=== PATIENT | female | born 1970 | race Caucasian/White ===

== ENCOUNTER → 2016-08-29 | Outpatient (CLI) | payer OTHER ==
[~2016-08-29] MED LIST: ACET1TAB84 PO; BIOT5000 PO; CALC500C70 PO; TAMO20TA9 PO; VITA400C15 PO
[2016-08-29 17:49] LABS: BASO % 0.6 %; BASO ABS # 0.03 K/uL (0-0.2); COMPLETE YES; EOS % 2.2 %; HEMATOCRIT 38.5 % (37-47); IG% 0.2 %; LYMPH % 36.9 %; MEAN CELL VOLUME 91.9 fL (80-100); MEAN CORPUSCULAR HEMOGLOBIN 29.8 pg (25-34); MEAN CORPUSCULAR HGB CONC 32.5 g/dl (32-36); MEAN PLATELET VOLUME 9.9 fL (7.4-10.4); NEUT % 55.1 %; PLATELET COUNT 280 K/uL (130-400); RED BLOOD COUNT 4.19 M/uL (4.2-5.4); WHITE BLOOD COUNT 5.42 K/uL (4.8-10.8)
[2016-08-29 17:55] LABS: ALT/SGPT 27 U/L (12-78); AST/SGOT 20 U/L (15-37); BLOOD UREA NITROGEN 22 mg/dl (7-18); BUN/CREATININE RATIO 23.5 (10-20); CARBON DIOXIDE 25 mmol/L (21-32); CHLORIDE 110 mmol/L (98-107); CREATININE 0.95 mg/dl (0.60-1.20); GLUCOSE 89 mg/dl (70-99); SODIUM 142 mmol/L (136-145)
[2016-08-29 17:57] LABS: ALB/GLOB RATIO 0.9 (0.9-2); ALKALINE PHOSPHATASE 55 U/L (45-117)
== END | disposition home or self-care (01) ==
LOC: C.LABPBG 13:01
PROVIDERS: ATTEND Nurse Practitioner Family
DX: C50.912 Malignant neoplasm of unspecified site of left female breast (principal)

== ENCOUNTER → 2016-09-18 | Outpatient (CLI) | payer OTHER | END | disposition home or self-care (01) | LOC: C.PAPS 15:15 | PROVIDERS: ATTEND Obstetrics & Gynecology | DX: Z12.4 Encounter for screening for malignant neoplasm of cervix (principal) ==

== ENCOUNTER → 2016-12-27 | Outpatient (CLI) | payer OTHER ==
[~2016-12-27] MED LIST changes: +TAMO20TA47 PO; -TAMO20TA9 PO
[2016-12-27 17:00] LABS: BASO % 0.5 %; BASO ABS # 0.03 K/uL (0-0.2); COMPLETE YES; EOS % 1.8 %; HEMATOCRIT 38.9 % (37-47); IG% 0.3 %; LYMPH % 39.1 %; LYMPH ABS # 2.42 K/uL (1.2-3.4); MEAN CELL VOLUME 91.5 fL (80-100); MEAN CORPUSCULAR HEMOGLOBIN 30.1 pg (25-34); MEAN CORPUSCULAR HGB CONC 32.9 g/dl (32-36); MEAN PLATELET VOLUME 9.8 fL (7.4-10.4); MONO % 6.9 %; NEUT % 51.4 %; PLATELET COUNT 263 K/uL (130-400); RED BLOOD COUNT 4.25 M/uL (4.2-5.4); WHITE BLOOD COUNT 6.19 K/uL (4.8-10.8)
[2016-12-27 17:22] LABS: ALT/SGPT 23 U/L (12-78); BLOOD UREA NITROGEN 17 mg/dl (7-18); BUN/CREATININE RATIO 17.5 (10-20); CALCIUM 9.3 mg/dl (8.5-10.1); CARBON DIOXIDE 29 mmol/L (21-32); CHLORIDE 107 mmol/L (98-107); CREATININE 0.99 mg/dl (0.60-1.20); GLUCOSE 91 mg/dl (70-99); POTASSIUM 4.9 mmol/L (3.5-5.1); SODIUM 140 mmol/L (136-145)
[2016-12-27 17:25] LABS: ALB/GLOB RATIO 0.9 (0.9-2); ALKALINE PHOSPHATASE 53 U/L (45-117); AST/SGOT 20 U/L (15-37)
== END | disposition home or self-care (01) ==
LOC: C.LABPBG 15:22
PROVIDERS: ATTEND Internal Medicine Hematology & Oncology
DX: C50.312 Malignant neoplasm of lower-inner quadrant of left female breast (principal)

== ENCOUNTER → 2017-04-25 | Outpatient (CLI) | payer OTHER ==
[~2017-04-25] MED LIST changes: +GADAVIST IV PRN; -TAMO20TA47 PO; +TAMO20TA9 PO
--- NOTE | 2017-04-26 14:36 | MAMMOGRAPHY REPORT ---
BREAST MRI OF BOTH BREASTS : 04/25/2017 CLINICAL HISTORY: History of left breast cancer status post lumpectomy. Also with history of 2 benig n right breast biopsies. COMPARISON: Comparison is made to exams dated: 09/11/2016 mammogram, 09/11/2016 ultrasound, 03/12/2016 mammogram, 02/29/2016 breast MRI, 09/15/2015 mammogram, and 09/06/2015 mammogram - [facility]. Technique: The patient was placed prone in a dedicated breast imaging coil. Precontrast axial T1-bhavin ghted, axial T2-weighted fat saturation, and axial T1-weighted fat saturation images were obtained. After the administration of 12.5 mL of Gadavist IV contrast, sequential T1-weighted fat saturation im ages were obtained. Subtraction images were obtained of the dynamic contrast enhanced sequences, and 3-D reformations were performed. The [employer] software was used for kinetic analysis. The technologis t reported that after the contrast injection was given, the patient complained of pain at her IV on h er hand. The technologist reported mild puffiness at the IV site but believed that most of the contr ast still entered her vein and therefore the post contrast sequences were obtained. Findings: No significant contrast is seen within either breast on the postcontrast sequences, as well as elsewh ere including the cardiac structures/great vessels. Given that the contrast bolus is suboptimal, the exam is nondiagnostic and malignancy cannot be excluded. The patient should return for repeat imagi ng. The precontrast images show susceptibility artifact within the left central/6:00 breast from prior emily mpectomy. 2 areas of clip artifact are also seen within the right breast from prior benign biopsies. There is no evidence of axillary adenopathy on the precontrast images. IMPRESSION: ACR BI-RADS CATEGORY 0: INCOMPLETE EVALUATION: NEED ADDITIONAL IMAGING EVALUATION Nondiagnostic exam as described above. The patient should return for repeat imaging at no additional charge. She will be called to schedule a follow-up appointment. Ursula Hoang M.D. /:04/25/2017 14:56:23 Stock Repairer: electronic data interchange specialist, [facility] letter sent: Addl Imaging 0 BI-RADS Code: ACR BI-RADS Category 0: Incomplete Evaluation: Need Additional Imaging Evaluation
== END | disposition home or self-care (01) ==
LOC: C.MRI 06:34
PROVIDERS: ATTEND Nurse Practitioner Family
DX: C50.312 Malignant neoplasm of lower-inner quadrant of left female breast (principal)

== ENCOUNTER → 2017-04-29 | Outpatient (CLI) | payer OTHER ==
--- NOTE | 2017-05-02 14:38 | MAMMOGRAPHY REPORT ---
BREAST MRI OF BOTH BREASTS : 04/29/2017 CLINICAL HISTORY: 47-year-old woman with a personal history of left breast cancer status post breast conservation treatment presents for additional surveillance. COMPARISON: Comparison is made to exams dated: 04/25/2017 breast MRI, 09/11/2016 ultrasound, 03/12/2016 mammogram, 09/15/2015 ultrasound biopsy, 09/06/2015 ultrasound, and 09/06/2015 mammogram - [facility]. TECHNIQUE: Using a 1.5 Yoli magnet and dedicated breast coil, multisequence axial images were obtain ed through the breasts. After uneventful IV administration of XXXX mL of Gadavist, dynamic multiphas e contrast-enhanced axial images, and sagittal postcontrast were obtained. Temporal subtraction axia l images and 3-D MIP images are provided. Everything was then reviewed on a 3-D workstation, [employer] FINDINGS: Right breast: There is mild to moderate background parenchymal enhancement. No new suspicious enhanc ing mass, non-mass enhancement, architectural distortion or suspicious kinetics are seen in the right breast. No focal skin thickening or nipple retraction. No suspicious right axillary lymphadenopath y. Left breast: There is mild to moderate background parenchymal enhancement. There is expected archite ctural distortion and susceptibility artifact from surgical clips in the 6:00 middle to posterior lef t breast, at the site of prior lumpectomy. There are scattered enhancing foci in the left breast wit hout evidence of a suspicious enhancing mass, suspicious non-mass enhancement or unexpected manager architecture ural distortion. No suspicious left axillary lymphadenopathy. There is trace dependent fluid in the visualized right lung. IMPRESSION: ACR BI-RADS CATEGORY 2: BENIGN 1. Expected post treatment changes in the left breast, without MRI evidence of malignancy in the harry asts. No suspicious axillary lymphadenopathy. 2. Continuation of annual screening mammography and MRI is recommended. The patient will receive written notification of the results. Hillary Rodriguez M.D. ay/:05/01/2017 16:21:21 Pin Drafter Operator: booking officer, [facility] letter sent: Normal 1/2 BI-RADS Code: ACR BI-RADS Category 2: Benign
== END | disposition home or self-care (01) ==
LOC: C.MRI 15:28
PROVIDERS: ATTEND Nurse Practitioner Family
DX: C50.312 Malignant neoplasm of lower-inner quadrant of left female breast (principal)

== ENCOUNTER → 2017-04-30 | Outpatient (CLI) | payer OTHER ==
[~2017-04-30] MED LIST changes: -GADAVIST IV PRN
[2017-04-30 12:42] LABS: BASO ABS # 0.04 K/uL (0-0.2); EOS % 3.1 %; EOS ABS # 0.13 K/uL (0-0.5); HEMATOCRIT 42.4 % (37-47); HEMOGLOBIN 14.5 g/dL (12.0-16.0); IG# 0.01 K/uL (0.00-0.02); LYMPH % 38.3 %; LYMPH ABS # 1.58 K/uL (1.2-3.4); MEAN CELL VOLUME 89.1 fL (80-100); MEAN CORPUSCULAR HEMOGLOBIN 30.5 pg (25-34); MEAN CORPUSCULAR HGB CONC 34.2 g/dl (32-36); MEAN PLATELET VOLUME 10.5 fL (7.4-10.4); MONO % 6.1 %; MONO ABS # 0.25 K/uL (0.11-0.59); NEUT % 51.3 %; NEUT ABS # 2.12 K/uL (1.4-6.5); PLATELET COUNT 254 K/uL (130-400); RED CELL DISTRIBUTION WIDTH CV 12.8 % (11.5-14.5); RED CELL DISTRIBUTION WIDTH SD 41.7 fL (36.4-46.3); WHITE BLOOD COUNT 4.13 K/uL (4.8-10.8)
[2017-04-30 14:22] LABS: ALBUMIN 3.9 gm/dl (3.4-5.0); ALT/SGPT 44 U/L (12-78); AST/SGOT 31 U/L (15-37); BLOOD UREA NITROGEN 14 mg/dl (7-18); CALCIUM 9.4 mg/dl (8.5-10.1); CARBON DIOXIDE 25 mmol/L (21-32); CHOLESTEROL 176 mg/dl (0-200); CREATININE 0.82 mg/dl (0.60-1.20); GLUCOSE 103 mg/dl (70-99); POTASSIUM 3.7 mmol/L (3.5-5.1); SODIUM 137 mmol/L (136-145); TOTAL PROTEIN 7.8 gm/dl (6.4-8.2)
[2017-04-30 14:23] LABS: ALKALINE PHOSPHATASE 67 U/L (45-117); LDL CHOLESTEROL CALCULATED 102 mg/dl
== END | disposition home or self-care (01) ==
LOC: C.LABPBG 08:24
PROVIDERS: ATTEND Plastic Surgery
DX: C50.312 Malignant neoplasm of lower-inner quadrant of left female breast (principal); F41.9 Anxiety disorder, unspecified; I10 Essential (primary) hypertension; Z13.220 Encounter for screening for lipoid disorders

== ENCOUNTER 2020-01-29 11:51 | Inpatient (IN) ==
--- NOTE | 2020-01-29 12:49 | XRay Report ---
XR chest 1V portable CLINICAL HISTORY: Chest pain. COMPARISON STUDY: Chest radiograph December 02, 2014. FINDINGS: Lung volumes are at the lower limits of normal. There is no pneumothorax or pleural effusio n. There is no evidence for pulmonary edema. There is mild left lower lung opacity. Mild enlargement of the cardiac silhouette is noted. IMPRESSION: Left basilar opacity. Atelectasis is favored although an infectious process could appear similar. Radiographic follow-up is recommended. ACT 112: Negative or not required by law. Electronically signed by: Deangelo Mcgowan M.D. 01/29/2020 12:48 PM
--- NOTE | 2020-01-29 13:06 | Emergency Department Note ---
History of Present Illness General Chief Complaint: Chest Pain Time Seen by Provider: 01/29/20 12:22 History of Present Illness Provider Complaint: chest pain Onset (ago): day(s) 3 Duration: intermittent Onset: during exertion Pain Location: substernal Pain Radiation: neck Severity: mild Maximum Pain Intensity: 3 Current Pain Intensity: 2 Quality: + sharp Relieved By: + nothing Exacerbated By: + inspiration Context: + other (History of breast cancer) Associated symptoms: + dyspnea; no nausea, no vomiting, no diaphoresis, no sense of impending doom, no syncope and no palpitations Home Medications Home Medications Medication Instructions Recorded Confirmed Type exemestane 25 mg tablet 25 mg PO DAILY #30 tab 03/26/19 01/29/20 Rx hydrochlorothiazide 12.5 mg tablet 25 mg PO DAILY #180 tab 11/26/19 01/29/20 Rx escitalopram oxalate 10 mg tablet 20 mg PO DAILY #90 tab 12/24/19 01/29/20 Rx pantoprazole 40 mg tablet,delayed 40 mg PO DAILY 12/24/19 01/29/20 History release lisinopril 30 mg tablet 30 mg PO DAILY #90 tab 01/08/20 01/29/20 Rx atenolol 50 mg tablet 50 mg PO DAILY #90 tab 01/15/20 01/29/20 Rx Allergies Allergy/AdvReac Type Severity Reaction Status Date / Time adhesive AdvReac Mild Itchy rash Verified 01/29/20 12:57 to Tape/Steri Strips/Band Aids Past Med/Surg History Medical History Anxiety BRCA negative Breast cancer (11/03/14) "Left breast, invasive ductal carcinoma, grade 2, ER/NJ positive, Her2 negative, [id number], stage IA TREATMENT: lumpectomy and SLN. 11/19/14 Oncotype DX score 20 Status post post completion of systemic chemotherapy Started with Taxotere and Cytoxan, allergic reaction to Taxotere Completed chemotherapy with Adriamycin and Cytoxan BRCA1 and BRCA2 negative Status post completion of radiation therapy 06/13/2014 received 6640 cGy" On 07/12/15 15:58 Latoya Pathak wrote "Left breast, invasive ductal carcinoma, grade 2, ER/NJ positive, Her2 negative, [id number], stage IA TREATMENT: lumpectomy and SLN. 11/19/14 Oncotype DX score 20 Status post post completion of systemic chemotherapy Started with Taxotere and Cytoxan, allergic reaction to Taxotere Completed chemotherapy with Adriamycin and Cytoxan BRCA1 and BRCA2 negative Status post completion of radiation therapy 06/13/2014 received 6640 cGy" On 06/20/15 11:10 Latoya Pathak wrote "Left breast, invasive ductal carcinoma, grade 2, ER/NJ positive, Her2 negative, [id number], stage IA TREATMENT: lumpectomy and SLN. 11/19/14 Oncotype DX score 20 Status post post completion of systemic chemotherapy BRCA1 and BRCA2 negative Status post completion of radiation therapy 06/13/2014 received 6640 cGy" On 12/08/14 13:15 Mikayla Correa wrote "Left breast, invasive ductal carcinoma, grade 2, ER/NJ positive, Her2 negative, [id number], stage IA TREATMENT: lumpectomy and SLN. 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) Status post partial mastectomy of left breast (11/19/14) Family History Son Autism Sister Diabetes Gallbladder disease Grandmother (Maternal) Diabetes Father Urinary bladder cancer Mother Hypertension Stroke Denies family history of Ovarian cancer Prostate cancer Myocardial infarction Breast cancer Lung cancer Colorectal cancer Social History Smoking Status: Never smoker packs per day: 2; Second Hand Exposure: No; Hx Alcohol Use: Yes Hx Substance Use: No Preferred Language: Argentine Communication Ability: Effective Visual Impairment: No Limitations Hearing Ability: Normal Beliefs That Will Affect Care: None marital status: Current Living Situation: Spouse Current Living Situation Comment: with spouse and 2 children current occupational status: unemployed current occupation: house- Feels Safe at Home: Yes Childhood Exposure to Second-Hand Smoke: No Diet Comment: regular caffeine: Yes during the past year weight has: increased > 10 lbs Dental Care, Regularly: Yes Physical Activity Frequency: Does not Exercise Seatbelt Use: always Sunscreen Use: No Review of Systems A total of 10 systems reviewed and were otherwise negative Physical Exam Vital Signs Vital Signs - 24 hr 01/29/20 12:03 01/29/20 12:06 01/29/20 12:10 Temperature 37.1 C Temperature Source Oral Pulse Rate 76 76 78 Pulse Rate from SpO2 Sensor 78 75 77 Respiratory Rate 21 18 13 Respiratory Depth Normal Blood Pressure 153/81 H Blood Pressure Mean 88 Pulse Oximetry 98 98 97 Oxygen Delivery Method Room Air Sepsis Recent Fever Within 48 Hours No Sepsis New/Unexplained Change in Mental Status No Sepsis Action Taken by Nursing No Action Required 01/29/20 12:12 01/29/20 12:20 01/29/20 12:30 Temperature Temperature Source Pulse Rate 80 80 77 Pulse Rate from SpO2 Sensor 79 80 76 Respiratory Rate 24 24 19 Respiratory Depth Blood Pressure 142/77 H Blood Pressure Mean 89 Pulse Oximetry 97 97 97 Oxygen Delivery Method Sepsis Recent Fever Within 48 Hours Sepsis New/Unexplained Change in Mental Status Sepsis Action Taken by Nursing 01/29/20 12:31 01/29/20 12:34 01/29/20 12:40 Temperature Temperature Source Pulse Rate 75 72 Pulse Rate from SpO2 Sensor 75 72 Respiratory Rate 21 22 Respiratory Depth Blood Pressure 145/82 H Blood Pressure Mean 108 Pulse Oximetry 97 98 98 Oxygen Delivery Method Room Air Sepsis Recent Fever Within 48 Hours Sepsis New/Unexplained Change in Mental Status Sepsis Action Taken by Nursing 01/29/20 12:50 01/29/20 13:00 01/29/20 13:01 Temperature Temperature Source Pulse Rate 78 76 82 Pulse Rate from SpO2 Sensor 79 76 81 Respiratory Rate 21 24 21 Respiratory Depth Blood Pressure 147/108 H Blood Pressure Mean 124 Pulse Oximetry 97 98 98 Oxygen Delivery Method Sepsis Recent Fever Within 48 Hours Sepsis New/Unexplained Change in Mental Status Sepsis Action Taken by Nursing 01/29/20 13:10 01/29/20 13:20 01/29/20 13:30 Temperature Temperature Source Pulse Rate 72 73 71 Pulse Rate from SpO2 Sensor 72 74 71 Respiratory Rate 20 19 19 Respiratory Depth Blood Pressure 149/102 H Blood Pressure Mean 112 Pulse Oximetry 97 96 97 Oxygen Delivery Method Sepsis Recent Fever Within 48 Hours Sepsis New/Unexplained Change in Mental Status Sepsis Action Taken by Nursing 01/29/20 13:40 01/29/20 13:50 01/29/20 14:00 Temperature Temperature Source Pulse Rate 75 91 H 77 Pulse Rate from SpO2 Sensor 75 93 H 77 Respiratory Rate 24 23 Respiratory Depth Blood Pressure Blood Pressure Mean Pulse Oximetry 98 91 97 Oxygen Delivery Method Sepsis Recent Fever Within 48 Hours Sepsis New/Unexplained Change in Mental Status Sepsis Action Taken by Nursing 01/29/20 14:10 01/29/20 14:20 01/29/20 14:30 Temperature Temperature Source Pulse Rate 76 77 77 Pulse Rate from SpO2 Sensor 76 75 77 Respiratory Rate 22 22 21 Respiratory Depth Blood Pressure Blood Pressure Mean Pulse Oximetry 97 96 97 Oxygen Delivery Method Sepsis Recent Fever Within 48 Hours Sepsis New/Unexplained Change in Mental Status Sepsis Action Taken by Nursing Physical Exam GENERAL: She is oriented to person, place, and time. She appears well-developed and well-nourished. She does not appear distressed. HENT: Exam performed. -Head: Normocephalic and atraumatic. -Right Ear: External ear normal. No mastoid tenderness. -Left Ear: External ear normal. No mastoid tenderness. -Mouth/Throat: The oropharynx is clear and moist. No trismus in the jaw. No dental abscesses or uvula swelling. No oropharyngeal exudate or tonsillar abscesses. EYES: Conjunctivae and EOM are normal. Pupils are equal, round, and reactive to light. Right eye exhibits no discharge. Left eye exhibits no discharge. No scleral icterus. NECK: Normal range of motion. Neck supple. No JVD present. No spinous process tenderness present. No carotid bruit present. No rigidity. No tracheal deviation and normal range of motion present. No Brudzinski's sign and no Kernig's sign noted. CV: Normal rate, regular rhythm, normal heart sounds and intact distal pulses. There is no peripheral edema. Palpable radial pulses bue. PULM/CHEST: Effort normal and breath sounds normal. No respiratory distress. No stridor. She has no wheezes. She has no rales. -Chest Wall: She exhibits no tenderness. ABD: The abdomen is soft and obese. Bowel sounds are normal. She has no distension. No mass is present. There is no tenderness. There is no rebound, no guarding, no Hairston's sign and no tenderness at McBurney's point. Rovsig negative MUSC/SKEL: Normal range of motion. There is no peripheral edema, tenderness or deformity. LYMPH: No cervical adenopathy. NEURO: She is alert and oriented to person, place, and time. She has normal strength. No cranial nerve deficit or sensory deficit. Coordination and gait normal. GCS eye subscore is 4. GCS verbal subscore is 5. GCS motor subscore is 6. Cerebellar tests wnl. SKIN: Skin is warm and dry. She is not diaphoretic. PSYCH: She has a normal mood and affect. Behavior is normal. Judgment and thought content normal. Course Course 1222: The patient was evaluated in room B5. A complete history and physical exam was performed. Cardiac monitoring: An order was placed for continuous cardiac monitoring. The monitor shows a rate of 70 with sinus rhythm 1528: Vital signs stable. Labs within normal limits. Imaging shows no PE but does show a small to moderate pericardial effusion. Patient is still reporting chest pain intermittently. Given the patient's morbid obesity, history of hypertension, and family history of stroke the patient was offered inpatient observation for chest pain rule out ACS versus outpatient follow-up with cardiology. Patient stated she did not feel comfortable being discharged home will like to be brought into the hospital. Dr. Ireland [facility] hospitalist was notified of the patient agrees to evaluate the patient. Administered Medications Discontinued Medications Ioversol (Optiray 320 125ml) 118 ml IV ONCE ONE Stop: 01/29/20 14:45 Last Admin: 01/29/20 14:44 Dose: 118 ml Documented by: [id number] Medical Decision Making Laboratory Data Result diagrams: 01/29/20 13:47 01/29/20 13:47 Labs: Lab Results 01/29/20 01/29/20 01/29/20 Range/Units 13:47 13:47 13:47 WBC 8.91 (4.8-10.8) K/uL RBC 3.99 L (4.2-5.4) M/uL Hgb 11.8 L (12.0-16.0) g/dL Hct 36.1 L (37-47) % MCV 90.5 (80-100) fL MCH 29.6 (25-34) pg MCHC 32.7 (32-36) g/dL RDW Std Deviation 45.7 (36.4-46.3) fL RDW Coeff of Krystal 13.7 (11.5-14.5) % Plt Count 242 (130-400) K/uL MPV 10.2 (7.4-10.4) fL Immature Gran % (Auto) 0.2 % Neut % (Auto) 80.0 % Lymph % (Auto) 13.4 % Hart % (Auto) 6.2 % Eos % (Auto) 0.1 % Baso % (Auto) 0.1 % Neut # (Auto) 7.13 H (1.4-6.5) K/uL Lymph # (Auto) 1.19 L (1.2-3.4) K/uL Hart # (Auto) 0.55 (0.11-0.59) K/uL Eos # (Auto) 0.01 (0-0.5) K/uL Baso # (Auto) 0.01 (0-0.2) K/uL Immature Gran # (Auto) 0.02 (0.00-0.02) K/uL PT 11.1 (9.0-12.0) Seconds INR 1.1 (0.9-1.1) APTT 23.1 (21.0-31.0) Seconds PTT Ratio 0.8 Sodium 137 (136-145) mmol/L Potassium 3.9 (3.5-5.1) mmol/L Chloride 106 (98-107) mmol/L Carbon Dioxide 26 (21-32) mmol/L Anion Gap 5.0 (3-11) BUN 18 (7-18) mg/dl Creatinine 0.78 (0.6-1.2) mg/dl Est Cr Clr Drug Dosing 116.0 ml/min Est GFR ( Amer) 104.2 Est GFR (Non-Af Amer) 89.9 BUN/Creatinine Ratio 22.6 H (10-20) Glucose 116 H (70-99) mg/dl Calcium 9.4 (8.5-10.1) mg/dl Troponin I 0.039 (0-0.045) ng/ml Lipase 131 (73-393) U/L Imaging Data Chest x-ray: Radiologist's impression: XR chest 1V portable CLINICAL HISTORY: Chest pain. COMPARISON STUDY: Chest radiograph December 02, 2014. FINDINGS: Lung volumes are at the lower limits of normal. There is no pneumothorax or pleural effusion. There is no evidence for pulmonary edema. There is mild left lower lung opacity. Mild enlargement of the cardiac silhouette is noted. IMPRESSION: Left basilar opacity. Atelectasis is favored although an infectious process could appear similar. Radiographic follow-up is recommended. ACT 112: Negative or not required by law. Electronically signed by: Deangelo Mcgowan M.D. 01/29/2020 12:48 PM Dictated: 01/29/20 1246 Transcribed: 01/29/[address] angio chest PE protocol CT DOSE: 671.33 mGy.cm HISTORY: 49 years-old Female with ro PE. Acute shortness of breath with chest pain TECHNIQUE: Multiple CTA images of the chest were obtained after the intravenous administration of 118 ml Optiray 320. Coronal and sagittal MIPS were obtained from the axial data set and were submitted for review. All measurements were obtained according to NASCET criteria. A dose lowering technique was utilized adhering to the principles of ALARA. COMPARISON: Chest radiograph 01/29/2020 FINDINGS: CTA: Heart is upper limits of normal in size. Small to moderate pericardial effusion measures up to 1.2 cm posteriorly. No thoracic aortic aneurysm or dissection. The pulmonary arterial tree is opacified to level of the proximal subsegmental branches and demonstrates no filling defects to suggest thromboembolic disease. CT CHEST: No large thyroid nodule. No adenopathy. Small pleural effusions. Dependent and bibasilar predominant left greater than right groundglass and linear consolidative opacities. Mild associated bronchial wall thickening. Prior gastric bypass. Probable hepatic steatosis. Biopsy clips of the left breast. Bones of the chest appear intact. There is no acute fracture. Mild multilevel disc space narrowing with spondylitic spurring and facet arthrosis. IMPRESSION: 1. No evidence of pulmonary thromboembolic disease. 2. Small pleural effusions with [id number] pericardial effusion. 3. Bibasilar and dependent predominant, left greater than right groundglass and linear consolidative opacities favor atelectasis however a nonspecific infectious or inflammatory pneumonitis would be difficult to exclude. 4. No adenopathy. 5. Prior gastric bypass. ACT 112: Negative or not required by law. The above report was generated using voice recognition software. It may contain grammatical, syntax or spelling errors. Electronically signed by: Balwinder Hoang M.D. 01/29/2020 3:01 PM Dictated: 01/29/20 1451 Transcribed: 01/29/20 145 ECG Data Indication: chest pain Rate (beats per minute): 74 Rhythm: normal sinus Findings: no ST depression and no ST elevation Additional Comments: [place] QRS and QTc intervals within normal limits [facility] Narrative 1222: The patient was evaluated in room B5. A complete history and physical exam was performed. Cardiac monitoring: An order was placed for continuous cardiac monitoring. The monitor shows a rate of 70 with sinus rhythm 1528: Vital signs stable. Labs within normal limits. Imaging shows no PE but does show a small to moderate pericardial effusion. Patient is still reporting chest pain intermittently. Given the patient's morbid obesity, history of hypertension, and family history of stroke the patient was offered inpatient observation for chest pain rule out ACS versus outpatient follow-up with cardiology. Patient stated she did not feel comfortable being discharged home will like to be brought into the hospital. Dr. Ireland [facility] hospitalist was notified of the patient agrees to evaluate the patient. Impression & Plan Chest pain Discharge Plan Visit Data Chief Complaint: Chest Pain ED Provider: Isidro Marion Discharge Problem: Chest pain Patient Disposition: Being Evaluated by Hospitalist Forms Stand Alone Forms: My [facility] Prescriptions Prescriptions: No Action hydrochlorothiazide 12.5 mg tablet 25 mg PO DAILY Qty: 180 RF: 1 Hold Instructions: low BP escitalopram oxalate 10 mg tablet 20 mg PO DAILY Qty: 90 RF: 1 lisinopril 30 mg tablet 30 mg PO DAILY Qty: 90 RF: 1 atenolol 50 mg tablet 50 mg PO DAILY Qty: 90 RF: 1 exemestane 25 mg tablet 25 mg PO DAILY Qty: 30 RF: 2 pantoprazole 40 mg tablet,delayed release (DR/EC) 40 mg PO DAILY RF: 0 Referrals Referrals: Dari Bowman DO [Primary Care Provider] - Discharge Problem: Chest pain Qualifiers: Chest pain type: unspecified Qualified Code(s): R07.9 - Chest pain, unspecified
[2020-01-29 14:03] LABS: Basophils # (auto) 0.01 K/uL (0-0.2); Basophils % (auto) 0.1 %; Eosinophils # (auto) 0.01 K/uL (0-0.5); Eosinophils % (auto) 0.1 %; Hematocrit (blood only) 36.1 % (37-47); Hemoglobin 11.8 g/dL (12.0-16.0); Immature Granulocytes # (auto) 0.02 K/uL (0.00-0.02); Immature Granulocytes % (auto) 0.2 %; Lymphocytes # (auto) 1.19 K/uL (1.2-3.4); Lymphocytes % (auto) 13.4 %; Mean Corpuscular Hemoglobin 29.6 pg (25-34); Mean Corpuscular Hgb Conc 32.7 g/dL (32-36); Mean Corpuscular Volume 90.5 fL (80-100); Mean Platelet Volume 10.2 fL (7.4-10.4); Monocytes # (auto) 0.55 K/uL (0.11-0.59); Monocytes % (auto) 6.2 %; Neutrophils # (auto) 7.13 K/uL (1.4-6.5); Platelet Count 242 K/uL (130-400); RDW Coefficient of Variation 13.7 % (11.5-14.5); RDW Standard Deviation 45.7 fL (36.4-46.3); Red Blood Count 3.99 M/uL (4.2-5.4); White Blood Count 8.91 K/uL (4.8-10.8)
[2020-01-29 14:19] LABS: BUN Creatinine Ratio 22.6 (10-20); Calcium 9.4 mg/dl (8.5-10.1); Est GFR (African American) 104.2; Est GFR (Non-African American) 89.9; INR 1.1 (0.9-1.1); Partial Thromboplastin Ratio 0.8; Partial Thromboplastin Time 23.1 Seconds (21.0-31.0); Potassium 3.9 mmol/L (3.5-5.1); Prothrombin Time 11.1 Seconds (9.0-12.0)
[2020-01-29 14:23] LABS: Troponin I 0.039 ng/ml (0-0.045)
[2020-01-29] MEDS ORDERED: OPTIRAY 320 125ml IV ONE (14:44)
--- NOTE | 2020-01-29 15:03 | CT Scan Report ---
CT angio chest PE protocol CT DOSE: 671.33 mGy.cm HISTORY: 49 years-old Female with ro PE. Acute shortness of breath with chest pain TECHNIQUE: Multiple CTA images of the chest were obtained after the intravenous administration of 118 ml Optiray 320. Coronal and sagittal MIPS were obtained from the axial data set and were submitted for review. All measurements were obtained according to NASCET criteria. A dose lowering technique w as utilized adhering to the principles of ALARA. COMPARISON: Chest radiograph 01/29/2020 FINDINGS: CTA: Heart is upper limits of normal in size. Small to moderate pericardial effusion measures up to 1.2 cm posteriorly. No thoracic aortic aneurysm or dissection. The pulmonary arterial tree is opacified to level of the proximal subsegmental branches and demonstrates no filling defects to suggest thromboemb olic disease. CT CHEST: No large thyroid nodule. No adenopathy. Small pleural effusions. Dependent and bibasilar predominant left greater than right groundglass and linear consolidative opacities. Mild associated bronchial wal l thickening. Prior gastric bypass. Probable hepatic steatosis. Biopsy clips of the left breast. Bones of the chest appear intact. There is no acute fracture. Mild multilevel disc space narrowing with spondylitic spu rring and facet arthrosis. IMPRESSION: 1. No evidence of pulmonary thromboembolic disease. 2. Small pleural effusions with [id number] pericardial effusion. 3. Bibasilar and dependent predominant, left greater than right groundglass and linear consolidative opacities favor atelectasis however a nonspecific infectious or inflammatory pneumonitis would be dif ficult to exclude. 4. No adenopathy. 5. Prior gastric bypass. ACT 112: Negative or not required by law. The above report was generated using voice recognition software. It may contain grammatical, syntax o r spelling errors. Electronically signed by: Balwinder Hoang M.D. 01/29/2020 3:01 PM
--- NOTE | 2020-01-29 15:49 | History & Physical Report ---
Date of Service January 29, 2020 Assessment & Plan (1) Pericarditis: -Admit to PCU -CT imaging reviewed, appears to have small to moderate sized pericardial effusion, likely pericarditis with symptom presentation. -Check 2D echo -Cardiology consulted, discussed with Dr. Pope over the phone, agrees with current plan of care -Noted troponin of 0.39, trend x 2 more sets -ESR elevated at 50, checking CK -EKG reviewed with nonspecific changes -start on IV Toradol 15 mg q6h prn, colchicine 0.6 mg BID -Bio fire positive for rhino/enterovirus which is likely cause given the preceding viral illness, COVID negative (2) Chest pain: Secondary to pericarditis as above, no PE or pneumonia but has gotten especially significant illness Treatment as above (3) Pleural effusion: Small bilateral pleural effusions, likely secondary to recent post viral inflammatory condition (4) Viral illness: -Check COVID-19, biofire with recent viral illness-likely can cause viral pericarditis as described above -Contact precautions for now -O2 sat stable at 99% on RA -Supportive care -Hemodynamically stable (5) Essential hypertension: -Continue atenolol 50 mg, lisinopril 30 mg tonight, patient routinely takes medications in evening. She stopped her HCTZ several weeks ago due to low blood pressure after losing 40 pounds from gastric sleeve (6) Breast cancer: -ER [place] positive, HER-2/bethany negative, stage I, originally diagnosed 2014, left breast. -Status post chemo and XRT, currently on exemestane -Follows with Neisha Colmenares at the [facility] (7) Morbid obesity: -BMI 47.8, s/p gastric sleeve 12/16/2019 and has already lost 40 pounds in 6 weeks, diet and exercise to be encouraged (8) Anxiety: -History of such, continue Lexapro 20 mg daily (9) DVT prophylaxis: - teds, scds, encourage ambulation CODE: Full Dispo: From home, likely to remain in the hospital x 1-2 days History of Present Illness Chief Complaint: Chest pain Primary Care Provider: Dari Bowman, DO This is a 49 yo F with PMHx of Breast cancer currently on exemestane, s/p sleeve gastrectomy on 12/16/[address] Tyshawn Natarajan at [facility] [place], HTN, morbid obesity with BMI of 47.8, who presents with acute onset of chest pain which started yesterday. She report having had a cold within the past week, symptoms include runny nose, headache, sore throat, postnasal drip, nausea reports her children and her now have it. She reports feeling like her cold was improving, however yesterday noticed significant sharp pain radiating to the back when she would take deep breaths. She went to an urgent care center this morning. While she was sitting in the waiting room felt acute lightheadedness, flushed and became nauseous. She was able to tell the lip and gate builder "something is not right" and was taken back into an evaluation room. There she was noted to be hypotensive with SBP =80. EMS was called, and was given IV fluids in route to the hospital. Currently she has mild chest pain at rest, worse with deep breaths, worse with leaning backwards/laying flat and improves with leaning forward. She denies any recent sick contacts other than her immediate family, denies any known COVID-19 positive contacts. In regards to her gastric sleeve surgery she had follow-up at 2 weeks and is scheduled to go back again next week for further follow-up. Everything had been going well and has not had any significant bouts of vomiting, diarrhea, abdominal pain, fever, chills or sweats. Her blood pressure has improved to being 180s/105, she is due to take her routine medications this evening which include atenolol, lisinopril. Allergies Allergy/AdvReac Type Severity Reaction Status Date / Time adhesive AdvReac Mild Itchy rash Verified 01/29/20 12:57 to Tape/Steri Strips/Band Aids Home Medications Home Medications Medication Instructions Recorded Confirmed Type exemestane 25 mg tablet 25 mg PO DAILY #30 tab 03/26/19 01/29/20 Rx escitalopram oxalate 10 mg tablet 20 mg PO DAILY #90 tab 12/24/19 01/29/20 Rx pantoprazole 40 mg tablet,delayed 40 mg PO DAILY 12/24/19 01/29/20 History release lisinopril 30 mg tablet 30 mg PO DAILY #90 tab 01/08/20 01/29/20 Rx atenolol 50 mg tablet 50 mg PO DAILY #90 tab 01/15/20 01/29/20 Rx Past Med/Surg History Medical History Anxiety BRCA negative Breast cancer (11/03/14) "Left breast, invasive ductal carcinoma, grade 2, ER/WA positive, Her2 negative, [id number], stage IA TREATMENT: lumpectomy and SLN. 11/19/14 Oncotype DX score 20 Status post post completion of systemic chemotherapy Started with Taxotere and Cytoxan, allergic reaction to Taxotere Completed chemotherapy with Adriamycin and Cytoxan BRCA1 and BRCA2 negative Status post completion of radiation therapy 06/13/2014 received 6640 cGy" On 07/12/15 15:58 Latoya Pathak wrote "Left breast, invasive ductal carcinoma, grade 2, ER/WA positive, Her2 negative, [id number], stage IA TREATMENT: lumpectomy and SLN. 11/19/14 Oncotype DX score 20 Status post post completion of systemic chemotherapy Started with Taxotere and Cytoxan, allergic reaction to Taxotere Completed chemotherapy with Adriamycin and Cytoxan BRCA1 and BRCA2 negative Status post completion of radiation therapy 06/13/2014 received 6640 cGy" On 06/20/15 11:10 Latoya Pathak wrote "Left breast, invasive ductal carcinoma, grade 2, ER/WA positive, Her2 negative, [id number], stage IA TREATMENT: lumpectomy and SLN. 11/19/14 Oncotype DX score 20 Status post post completion of systemic chemotherapy BRCA1 and BRCA2 negative Status post completion of radiation therapy 06/13/2014 received 6640 cGy" On 12/08/14 13:15 Mikayla Correa wrote "Left breast, invasive ductal carcinoma, grade 2, ER/WA positive, Her2 negative, [id number], stage IA TREATMENT: lumpectomy and SLN. 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) Status post partial mastectomy of left breast (11/19/14) Family History Son Autism Sister Diabetes Gallbladder disease Grandmother (Maternal) Diabetes Father Urinary bladder cancer Mother Hypertension Stroke Denies family history of Ovarian cancer Prostate cancer Myocardial infarction Breast cancer Lung cancer Colorectal cancer Social History Smoking Status: Never smoker packs per day: 2; Second Hand Exposure: No; Hx Alcohol Use: Yes Hx Substance Use: No Preferred Language: Sudanese Communication Ability: Effective Visual Impairment: No Limitations Hearing Ability: Normal Beliefs That Will Affect Care: None marital status: Current Living Situation: Spouse Current Living Situation Comment: with spouse and 2 children current occupational status: unemployed current occupation: house- Feels Safe at Home: Yes Childhood Exposure to Second-Hand Smoke: No Diet Comment: regular caffeine: Yes during the past year weight has: increased > 10 lbs Dental Care, Regularly: Yes Physical Activity Frequency: Does not Exercise Seatbelt Use: always Sunscreen Use: No Review of Systems Review of Systems: Constitutional: As per HPI, currently no fever, sweats or chills Eyes: No diplopia, no worsening or blurred vision ENT: normal hearing, no trouble swallowing Respiratory: As per HPI, +cough, + clear sputum, no dyspnea at rest or on exertion Cardiovascular: As per HPI, no palpitations Abdomen: As per HPI, no pain, nausea, vomiting, diarrhea or constipation Musculoskeletal: No joint pain, calf pain, swelling Neurologic: No weakness, numbness/tingling, or balance problems Psychiatric: No anxiety or depression Skin: No rash or itch Physical Exam Physical Exam: General: awake, alert, no apparent distress, + morbidly obese, BMI 47.8 Head: Normocephalic, atraumatic ENT: PERRL, EOMI, no pharyngeal exudate or erythema, mucous membranes moist Chest: Clear to auscultation, on room air with O2 sats 99%, faint crackles at bases bilaterally, no wheezes or rales Cardiac: Regular rate and rhythm, no murmur, JVD difficult to assess due to body habitus, normal peripheral pulses, good capillary refill Abdominal: NABS x 4 quadrants, soft, nondistended, nontender to palpation, no rebound or guarding Extremities: Normal inspection, no peripheral edema or erythema, calfs nontender to palpation Psych: Normal mood and affect Neuro: AAO x 3, no gross motor deficits, speech is clear, no peripheral sensory deficits Results & Data Results & Data ([facility]) Vital Signs (Past 12 Hours) Vital Signs Temp Pulse Resp BP Pulse Ox 01/29/20 14:30 77 21 97 01/29/20 14:20 77 22 96 01/29/20 14:10 76 22 97 01/29/20 14:00 77 23 97 01/29/20 13:50 91 H 91 01/29/20 13:40 75 24 98 01/29/20 13:30 71 19 149/102 H 97 01/29/20 13:20 73 19 96 01/29/20 13:10 72 20 97 01/29/20 13:01 82 21 147/108 H 98 01/29/20 13:00 76 24 98 01/29/20 12:50 78 21 97 01/29/20 12:40 72 22 98 01/29/20 12:34 98 01/29/20 12:31 75 21 145/82 H 97 01/29/20 12:30 77 19 97 01/29/20 12:20 80 24 97 01/29/20 12:12 80 24 142/77 H 97 01/29/20 12:10 78 13 97 01/29/20 12:06 76 18 98 01/29/20 12:03 37.1 C 76 21 153/81 H [address] angio chest PE protocol CT DOSE: 671.33 mGy.cm HISTORY: 49 years-old Female with ro PE. Acute shortness of breath with chest pain TECHNIQUE: Multiple CTA images of the chest were obtained after the intravenous administration of 118 ml Optiray 320. Coronal and sagittal MIPS were obtained from the axial data set and were submitted for review. All measurements were obtained according to NASCET criteria. A dose lowering technique was utilized adhering to the principles of ALARA. COMPARISON: Chest radiograph 01/29/2020 FINDINGS: CTA: Heart is upper limits of normal in size. Small to moderate pericardial effusion measures up to 1.2 cm posteriorly. No thoracic aortic aneurysm or dissection. The pulmonary arterial tree is opacified to level of the proximal subsegmental branches and demonstrates no filling defects to suggest thromboembolic disease. CT CHEST: No large thyroid nodule. No adenopathy. Small pleural effusions. Dependent and bibasilar predominant left greater than right groundglass and linear consolidative opacities. Mild associated bronchial wall thickening. Prior gastric bypass. Probable hepatic steatosis. Biopsy clips of the left breast. Bones of the chest appear intact. There is no acute fracture. Mild multilevel disc space narrowing with spondylitic spurring and facet arthrosis. IMPRESSION: 1. No evidence of pulmonary thromboembolic disease. 2. Small pleural effusions with [id number] pericardial effusion. 3. Bibasilar and dependent predominant, left greater than right groundglass and linear consolidative opacities favor atelectasis however a nonspecific infectious or inflammatory pneumonitis would be difficult to exclude. 4. No adenopathy. 5. Prior gastric bypass. ECG Indication: chest pain Rhythm: normal sinus Code Status & VTE Plan Code Status Full code-discussed with patient at bedside Supervising Physician Co-Signing Physician Notes PA Supervision Note: I personally saw and examined the patient. I verified all howard points and agree with BUBBA Davis with the following exceptions and/or additions: This patient is a 41-year-old female with history of obesity, hypertension, GERD, depression with anxiety who presents with 1 week viral upper respiratory symptoms followed by onset of chest pain as noted above. At some hypotension at the urgent care today was sent here by EMS. When I saw her, she received 1 dose of Toradol and was very significantly improved with her chest pain History and ROS reviewed as above Vitals reviewed, notably hypertensive Gen: AAOx3, NAD HEENT: Anicteric sclerae, EOMI, watery eyes, conjunctiva mildly erythematous, oropharynx clear no erythema CV: RRR no mgr nl S1S2, no chest wall tenderness Pulm: CTAB no wcr Abd: +BS soft NT ND no masses or hernias Ext: No edema, 2+ DP pulses Skin: No rashes, warm/dry Neuro: Full strength throughout Laboratory values reviewed Covered-19 is negative bio nPicker viral respiratory panel positive for entero- /rhinovirus ECG reviewed from 01/29/2020 at 1203 with normal sinus rhythm, rate 74, nonspecific T wave flattening in aVF and V6 Imaging studies reviewed 49-year-old female with history as above, here with suspected acute pericarditis secondary rhino/enterovirus Check echocardiogram. Consult cardiology Serial troponin, monitor on telemetry for arrhythmias We will make Toradol scheduled every 6 hours for next 24 hours and continue colchicine PG Care Time/CCT Total # of Minutes Spent Total Time Spent with Patient: Total time spent is greater than 50% in coordination of care (as documented) at patient's floor/unit and/or counseling patient: Coding Level of Care Code 63688 Initial Inpt Care Lvl 3 Diagnoses Pericarditis I31.9 Chest pain R07.9 Chest pain type: unspecified Pleural effusion J90 Viral illness B34.9 Essential hypertension I10 Breast cancer C50.919 Morbid obesity E66.01 Anxiety F41.9 DVT prophylaxis Z29.9 (1) Chest pain Chest pain type: unspecified Qualified Code(s): R07.9 - Chest pain, unspecified
[2020-01-29] MEDS ORDERED: ONDANSETRON INJ 2 MG/ML 2 ML VIAL IV PRN (16:13)
--- NOTE | 2020-01-29 16:36 | Electrocardiogram Report ---
Test Reason : Blood Pressure : / mmHG Vent. Rate : 074 BPM Atrial Rate : 074 BPM P-R Int : 160 ms QRS Dur : 080 ms QT Int : 388 ms P-R-T Axes : 009 035 024 degrees QTc Int : 430 ms Normal sinus rhythm Nonspecific T wave abnormality Abnormal ECG No previous ECGs available Confirmed by Higinio Pope ([id number]) on 01/29/2020 4:36:02 PM Referred By: REFERRED SELF Confirmed By:Jerman Pope
[2020-01-29 17:19] LABS: Lyme Ab IgG w/WB Rflx Negative (Negative); Lyme Ab IgM w/WB Rflx Negative (Negative)
[2020-01-29 17:43] LABS: Adenovirus PCR Not Detected (NotDetected); Bordetella parapertussis PCR Not Detected (NotDetected); Bordetella pertussis PCR Not Detected (NotDetected); Chlamydia pneumoniae PCR Not Detected (NotDetected); Coronavirus 229E PCR Not Detected (NotDetected); Coronavirus CoV-2 (COVID19)PCR Not Detected (NotDetected); Coronavirus HKU1 PCR Not Detected (NotDetected); Coronavirus NL63 PCR Not Detected (NotDetected); Coronavirus OC43PCR Not Detected (NotDetected); Human Metapneumovirus PCR Not Detected (NotDetected); Influenza A PCR Not Detected (NotDetected); Influenza B PCR Not Detected (NotDetected); Mycoplasma pneumoniae PCR Not Detected (NotDetected); Parainfluenza Virus 1 PCR Not Detected (NotDetected); Parainfluenza Virus 2 PCR Not Detected (NotDetected); Parainfluenza Virus 3 PCR Not Detected (NotDetected); Parainfluenza Virus 4 PCR Not Detected (NotDetected); Respiratory Syncytial VirusPCR Not Detected (NotDetected)
[2020-01-29 17:52] LABS: Rhinovirus/Enterovirus PCR DETECTED (NotDetected)
[2020-01-29] MEDS ORDERED: KETOROLAC TROMETHAMINE 15 MG/ML VIAL IV PRN (17:58)
[2020-01-29] MEDS: ATENOLOL 50 MG TABLET PO SCH (18:17)
[2020-01-29] MEDS: lisinopriL 10 MG TAB PO SCH (22:20)
[2020-01-29] MEDS ORDERED: hydroCHLOROthiazide 25 MG TAB PO SCH (22:52)
[2020-01-30] MEDS: COLCHICINE 0.6 MG TAB PO SCH ×3 (00:13→19:37)
[2020-01-30] MEDS: ESCITALOPRAM OXALATE 20 MG TAB PO SCH ×2 (00:13→07:49)
[2020-01-30] MEDS: PANTOprazole 40 MG TAB PO SCH ×2 (00:14→07:49)
[2020-01-30] MEDS: KETOROLAC TROMETHAMINE 15 MG/ML VIAL IV SCH ×2 (00:31→06:04)
[2020-01-30 04:53] LABS: Hemoglobin 11.5 g/dL (12.0-16.0); Mean Corpuscular Hemoglobin 29.4 pg (25-34); Mean Corpuscular Hgb Conc 32.9 g/dL (32-36); Mean Corpuscular Volume 89.5 fL (80-100); Mean Platelet Volume 10.2 fL (7.4-10.4); Platelet Count 277 K/uL (130-400); RDW Coefficient of Variation 13.6 % (11.5-14.5); Red Blood Count 3.91 M/uL (4.2-5.4); White Blood Count 8.23 K/uL (4.8-10.8)
[2020-01-30 05:21] LABS: Albumin Level 3.1 gm/dl (3.4-5.0); BUN Creatinine Ratio 28.5 (10-20); Calcium 8.9 mg/dl (8.5-10.1); Creatinine Clr Calc Pharmacy 130.9 ml/min; Est GFR (African American) 119.9; Est GFR (Non-African American) 103.4; Potassium 3.6 mmol/L (3.5-5.1)
[2020-01-30 05:24] LABS: Albumin Globulin Ratio 0.8 (0.9-2); Bilirubin,Total 1.2 mg/dl (0.2-1); Globulin 3.9 gm/dl (2.5-4.0)
[2020-01-30] MEDS: ATENOLOL 50 MG TABLET PO SCH ×2 (08:57→19:36)
[2020-01-30] MEDS: lisinopriL 10 MG TAB PO SCH ×2 (08:57→19:35)
[2020-01-30] MEDS ORDERED: hydroCHLOROthiazide 25 MG TAB PO SCH (09:00)
[2020-01-30] MEDS ORDERED: Nursing to Pharmacy Communication SCH (09:00)
--- NOTE | 2020-01-30 10:49 | Hospitalist Progress Note ---
Date of Service January 30, 2020 Assessment & Plan (1) Pericarditis: Presented with 1 week of preceding viral illness with Rhino/Entero virus (confirmed here) followed by acute onset of pleuritic type chest pain, worse with lying flat and improved with sitting up. With some brief hypotension and presyncope at urgent care prior to presentation at [facility]. Hypotension resolved CTA Chest neg for PE but showed small-mod pericardial effusion and small bilat pleural effusions. ESR high at 50. ECG with nonspecific TW changes. Now with mildly elevated troponin since admission--> 0.039/[id number] Bio fire positive for rhino/enterovirus which is likely cause of the myopericarditis given the preceding viral illness; COVID negative No events on tele ECHO pending but no signs of tamponade Cardiology consult pending -continued stay on PCU -with recent h/o gastric sleeve, she is not to take NSAIDs-has received 3 doses of Toradol with excellent response. -will change toradol to prn severe chest pain and advised only to use if absolutely necessary -continue PPI for GI protection -continue colchicine x 1-2 months -follow troponin until peaks (2) Chest pain: Secondary to pericarditis as above, no PE or pneumonia Trop positive but not acute coronary syndrome Treatment as above (3) Pleural effusion: Small bilateral pleural effusions, likely secondary to recent post viral inflammatory condition (4) Viral illness: Negative COVID-19, biofire as above +Entero/Rhinovirus -Droplet precautions -O2 sat stable on RA -Supportive care -Hemodynamically stable (5) Essential hypertension: -Continue atenolol 50 mg, lisinopril 30 mg, patient routinely takes medications in evening. She stopped her HCTZ several weeks ago due to low blood pressure after losing 40 pounds from gastric sleeve (6) Breast cancer: -ER [place] positive, HER-2/bethany negative, stage I, originally diagnosed 2014, left breast. -Status post chemo and XRT, currently on exemestane -Follows with Neisha Colmenares at the [facility] (7) Morbid obesity: -BMI 47.8, s/p gastric sleeve 12/16/2019 and has already lost 40 pounds in 6 weeks, diet and exercise to be encouraged (8) Anxiety: -History of such, continue Lexapro 20 mg daily (9) DVT prophylaxis: - teds, scds, encourage ambulation CODE: Full Dispo: continued stay Admission and Anticipated Discharge Date Admission Date: January 29, 2020 Subjective Pt feeling much better today. Chest pain now only a 2/10 in severity at the worst with lying flat. Has also developed some more MSK pain in left shoulder and some in the right shoulder that is tender to the touch and worse with using her arms-she thinks this developed from hunching over a lot yesterday with the ches tpain. Denies SOB, no further headache, no nausea or vomiting. She is eating and drinking. No abd pain. Tele with NSR, rates in the 80s I discussed her case with the [employer] Engineer Review of Systems Review of Systems: All systems reviewed & are unremarkable except as noted in HPI & below Physical Exam Constitutional: WD/WN, vitals as above Eyes: + anicteric sclerae Neck: trachea midline, no thyromegaly Respiratory: normal respiratory effort, lungs clear to auscultation Cardiovascular: RRR, no murmur, no edema Chest (Breasts): Chest: normal inspection of chest (+TTP over L>R anterior shoulders, no masses) Gastrointestinal (Abdomen): normal bowel sounds, soft, nontender, no hepatosplenomegaly Musculoskeletal: Extremities: extremities normal to inspection; no cyanosis and no clubbing Skin: no rashes, warm and dry Neurologic: moves all extremities and awake; no focal motor deficits Psychiatric: A+Ox3, euthymic affect Lymphatic: no lymphedema Results & Data Results & Data ([facility]) Vital Signs (Past 12 Hours) Vital Signs Temp Pulse Pulse Resp BP BP Pulse Ox 01/30/20 08:21 36.9 C 85 17 132/87 95 01/30/20 08:00 67 01/30/20 04:12 37.0 C 01/30/20 04:10 93 H 17 125/80 01/30/20 04:00 78 22 94 01/30/20 03:50 79 21 93 01/30/20 03:40 78 20 93 01/30/20 03:30 78 21 93 01/30/20 03:20 81 22 93 01/30/20 03:10 79 94 01/30/20 03:00 81 23 93 01/30/20 02:50 81 23 94 01/30/20 02:40 80 22 94 01/30/20 02:30 80 20 93 01/30/20 02:20 83 22 93 01/30/20 02:10 82 20 93 01/30/20 02:00 80 21 93 01/30/20 01:50 86 24 01/30/20 01:40 85 22 92 01/30/20 01:30 84 20 93 01/30/20 01:20 87 24 91 01/30/20 01:10 89 24 90 01/30/20 01:00 96 H 19 91 01/30/20 00:50 97 H 22 95 01/30/20 00:40 89 28 H 94 01/30/20 00:30 90 19 99 01/30/20 00:20 91 H 97 01/30/20 00:10 91 H 16 96 01/30/20 00:00 95 H 20 156/84 H 95 01/29/20 23:50 91 H 17 95 01/29/20 23:40 85 22 97 01/29/20 23:30 87 25 H 99 01/29/20 23:20 84 24 98 01/29/20 23:10 82 29 H 01/29/20 23:00 94 H 25 H 172/86 H 98 01/29/20 22:50 86 20 97 01/29/20 22:45 37.4 C 89 24 164/83 H 97 Laboratory Results 01/30/20 01/30/20 01/30/20 Range/Units 09:59 04:26 04:26 WBC 8.23 (4.8-10.8) K/uL RBC 3.91 L (4.2-5.4) M/uL Hgb 11.5 L (12.0-16.0) g/dL Hct 35.0 L (37-47) % MCV 89.5 (80-100) fL MCH 29.4 (25-34) pg MCHC 32.9 (32-36) g/dL RDW Std Deviation 45.0 (36.4-46.3) fL RDW Coeff of Krystal 13.6 (11.5-14.5) % Plt Count 277 (130-400) K/uL MPV 10.2 (7.4-10.4) fL Immature Gran % (Auto) % Neut % (Auto) % Lymph % (Auto) % Dimmit % (Auto) % Eos % (Auto) % Baso % (Auto) % Neut # (Auto) (1.4-6.5) K/uL Lymph # (Auto) (1.2-3.4) K/uL [place] # (Auto) (0.11-0.59) K/uL Eos # (Auto) (0-0.5) K/uL Baso # (Auto) (0-0.2) K/uL Immature Gran # (Auto) (0.00-0.02) K/uL ESR (0-21) mm/hr PT (9.0-12.0) Seconds INR (0.9-1.1) APTT (21.0-31.0) Seconds PTT Ratio Sodium 138 (136-145) mmol/L Potassium 3.6 (3.5-5.1) mmol/L Chloride 107 (98-107) mmol/L Carbon Dioxide 26 (21-32) mmol/L Anion Gap 5.0 (3-11) BUN 19 H (7-18) mg/dl Creatinine 0.68 (0.6-1.2) mg/dl Est Cr Clr Drug Dosing 130.9 ml/min Est GFR ( Amer) 119.9 Est GFR (Non-Af Amer) 103.4 BUN/Creatinine Ratio 28.5 H (10-20) Glucose 110 H (70-99) mg/dl Calcium 8.9 (8.5-10.1) mg/dl Total Bilirubin 1.2 H (0.2-1) mg/dl AST 20 (15-37) U/L ALT 30 (12-78) U/L Alkaline Phosphatase 86 (45-117) U/L Total Creatine Kinase (26-192) U/L Troponin I 0.255 H* (0-0.045) ng/ml Total Protein 7.0 (6.4-8.2) gm/dl Albumin 3.1 L (3.4-5.0) gm/dl Globulin 3.9 (2.5-4.0) gm/dl Albumin/Globulin Ratio 0.8 L (0.9-2) Lipase (73-393) U/L Adenovirus (PCR) (NotDetected) B. pertussis DNA (PCR) (NotDetected) B.parapertussis DNA PCR (NotDetected) Lyme Disease IgG Ab (Negative) Lyme Disease IgM Ab (Negative) C. pneumoniae DNA (PCR) (NotDetected) Coronavirus OC43 (PCR) (NotDetected) Coronavirus HKU1 (PCR) (NotDetected) Coronavirus 229E (PCR) (NotDetected) COVID-19 Eval Order COVID-19 PCR (NotDetected) Coronavirus NL63 (PCR) (NotDetected) Human Metapneumovir PCR (NotDetected) Influenza Type A (PCR) (NotDetected) Influenza Type B (PCR) (NotDetected) M. pneumoniae (PCR) (NotDetected) Parainfluenza 1 (PCR) (NotDetected) Parainfluenza 2 (PCR) (NotDetected) Parainfluenza 3 (PCR) (NotDetected) Parainfluenza 4 (PCR) (NotDetected) RSV (PCR) (NotDetected) Entero/Rhino (PCR) (NotDetected) 01/29/20 01/29/20 01/29/20 Range/Units 23:18 16:35 16:35 WBC (4.8-10.8) K/uL RBC (4.2-5.4) M/uL Hgb (12.0-16.0) g/dL Hct (37-47) % MCV (80-100) fL MCH (25-34) pg MCHC (32-36) g/dL RDW Std Deviation (36.4-46.3) fL RDW Coeff of Krystal (11.5-14.5) % Plt Count (130-400) K/uL MPV (7.4-10.4) fL Immature Gran % (Auto) % Neut % (Auto) % Lymph % (Auto) % [place] % (Auto) % Eos % (Auto) % Baso % (Auto) % Neut # (Auto) (1.4-6.5) K/uL Lymph # (Auto) (1.2-3.4) K/uL [place] # (Auto) (0.11-0.59) K/uL Eos # (Auto) (0-0.5) K/uL Baso # (Auto) (0-0.2) K/uL Immature Gran # (Auto) (0.00-0.02) K/uL ESR (0-21) mm/hr PT (9.0-12.0) Seconds INR (0.9-1.1) APTT (21.0-31.0) Seconds PTT Ratio Sodium (136-145) mmol/L Potassium (3.5-5.1) mmol/L Chloride (98-107) mmol/L Carbon Dioxide (21-32) mmol/L Anion Gap (3-11) BUN (7-18) mg/dl Creatinine (0.6-1.2) mg/dl Est Cr Clr Drug Dosing ml/min Est GFR ( Amer) Est GFR (Non-Af Amer) BUN/Creatinine Ratio (10-20) Glucose (70-99) mg/dl Calcium (8.5-10.1) mg/dl Total Bilirubin (0.2-1) mg/dl AST (15-37) U/L ALT (12-78) U/L Alkaline Phosphatase (45-117) U/L Total Creatine Kinase (26-192) U/L Troponin I 0.125 H* (0-0.045) ng/ml Total Protein (6.4-8.2) gm/dl Albumin (3.4-5.0) gm/dl Globulin (2.5-4.0) gm/dl Albumin/Globulin Ratio (0.9-2) Lipase (73-393) U/L Adenovirus (PCR) (NotDetected) B. pertussis DNA (PCR) (NotDetected) B.parapertussis DNA PCR (NotDetected) Lyme Disease IgG Ab (Negative) Lyme Disease IgM Ab (Negative) C. pneumoniae DNA (PCR) (NotDetected) Coronavirus OC43 (PCR) (NotDetected) Coronavirus HKU1 (PCR) (NotDetected) Coronavirus 229E (PCR) (NotDetected) COVID-19 Eval Order Covid19 Done at [facility] COVID-19 PCR Cancelled (NotDetected) Coronavirus NL63 (PCR) (NotDetected) Human Metapneumovir PCR (NotDetected) Influenza Type A (PCR) (NotDetected) Influenza Type B (PCR) (NotDetected) M. pneumoniae (PCR) (NotDetected) Parainfluenza 1 (PCR) (NotDetected) Parainfluenza 2 (PCR) (NotDetected) Parainfluenza 3 (PCR) (NotDetected) Parainfluenza 4 (PCR) (NotDetected) RSV (PCR) (NotDetected) Entero/Rhino (PCR) (NotDetected) 01/29/20 01/29/20 01/29/20 Range/Units 16:35 13:58 13:53 WBC (4.8-10.8) K/uL RBC (4.2-5.4) M/uL Hgb (12.0-16.0) g/dL Hct (37-47) % MCV (80-100) fL MCH (25-34) pg MCHC (32-36) g/dL RDW Std Deviation (36.4-46.3) fL RDW Coeff of Krystal (11.5-14.5) % Plt Count (130-400) K/uL MPV (7.4-10.4) fL Immature Gran % (Auto) % Neut % (Auto) % Lymph % (Auto) % [place] % (Auto) % Eos % (Auto) % Baso % (Auto) % Neut # (Auto) (1.4-6.5) K/uL Lymph # (Auto) (1.2-3.4) K/uL [place] # (Auto) (0.11-0.59) K/uL Eos # (Auto) (0-0.5) K/uL Baso # (Auto) (0-0.2) K/uL Immature Gran # (Auto) (0.00-0.02) K/uL ESR (0-21) mm/hr PT (9.0-12.0) Seconds INR (0.9-1.1) APTT (21.0-31.0) Seconds PTT Ratio Sodium (136-145) mmol/L Potassium (3.5-5.1) mmol/L Chloride (98-107) mmol/L Carbon Dioxide (21-32) mmol/L Anion Gap (3-11) BUN (7-18) mg/dl Creatinine (0.6-1.2) mg/dl Est Cr Clr Drug Dosing ml/min Est GFR ( Amer) Est GFR (Non-Af Amer) BUN/Creatinine Ratio (10-20) Glucose (70-99) mg/dl Calcium (8.5-10.1) mg/dl Total Bilirubin (0.2-1) mg/dl AST (15-37) U/L ALT (12-78) U/L Alkaline Phosphatase (45-117) U/L Total Creatine Kinase 90 (26-192) U/L Troponin I (0-0.045) ng/ml Total Protein (6.4-8.2) gm/dl Albumin (3.4-5.0) gm/dl Globulin (2.5-4.0) gm/dl Albumin/Globulin Ratio (0.9-2) Lipase (73-393) U/L Adenovirus (PCR) Not Detected (NotDetected) B. pertussis DNA (PCR) Not Detected (NotDetected) B.parapertussis DNA PCR Not Detected (NotDetected) Lyme Disease IgG Ab Negative (Negative) Lyme Disease IgM Ab Negative (Negative) C. pneumoniae DNA (PCR) Not Detected (NotDetected) Coronavirus OC43 (PCR) Not Detected (NotDetected) Coronavirus HKU1 (PCR) Not Detected (NotDetected) Coronavirus 229E (PCR) Not Detected (NotDetected) COVID-19 Eval Order COVID-19 PCR Not Detected (NotDetected) Coronavirus NL63 (PCR) Not Detected (NotDetected) Human Metapneumovir PCR Not Detected (NotDetected) Influenza Type A (PCR) Not Detected (NotDetected) Influenza Type B (PCR) Not Detected (NotDetected) M. pneumoniae (PCR) Not Detected (NotDetected) Parainfluenza 1 (PCR) Not Detected (NotDetected) Parainfluenza 2 (PCR) Not Detected (NotDetected) Parainfluenza 3 (PCR) Not Detected (NotDetected) Parainfluenza 4 (PCR) Not Detected (NotDetected) RSV (PCR) Not Detected (NotDetected) Entero/Rhino (PCR) DETECTED A* (NotDetected) 10/09/20 10/09/20 10/09/20 Range/Units 13:47 13:47 13:47 WBC (4.8-10.8) K/uL RBC (4.2-5.4) M/uL Hgb (12.0-16.0) g/dL Hct (37-47) % MCV (80-100) fL MCH (25-34) pg MCHC (32-36) g/dL RDW Std Deviation (36.4-46.3) fL RDW Coeff of Krystal (11.5-14.5) % Plt Count (130-400) K/uL MPV (7.4-10.4) fL Immature Gran % (Auto) % Neut % (Auto) % Lymph % (Auto) % [place] % (Auto) % Eos % (Auto) % Baso % (Auto) % Neut # (Auto) (1.4-6.5) K/uL Lymph # (Auto) (1.2-3.4) K/uL [place] # (Auto) (0.11-0.59) K/uL Eos # (Auto) (0-0.5) K/uL Baso # (Auto) (0-0.2) K/uL Immature Gran # (Auto) (0.00-0.02) K/uL ESR 50 H (0-21) mm/hr PT 11.1 (9.0-12.0) Seconds INR 1.1 (0.9-1.1) APTT 23.1 (21.0-31.0) Seconds PTT Ratio 0.8 Sodium 137 (136-145) mmol/L Potassium 3.9 (3.5-5.1) mmol/L Chloride 106 (98-107) mmol/L Carbon Dioxide 26 (21-32) mmol/L Anion Gap 5.0 (3-11) BUN 18 (7-18) mg/dl Creatinine 0.78 (0.6-1.2) mg/dl Est Cr Clr Drug Dosing 116.0 ml/min Est GFR ( Amer) 104.2 Est GFR (Non-Af Amer) 89.9 BUN/Creatinine Ratio 22.6 H (10-20) Glucose 116 H (70-99) mg/dl Calcium 9.4 (8.5-10.1) mg/dl Total Bilirubin (0.2-1) mg/dl AST (15-37) U/L ALT (12-78) U/L Alkaline Phosphatase (45-117) U/L Total Creatine Kinase (26-192) U/L Troponin I 0.039 (0-0.045) ng/ml Total Protein (6.4-8.2) gm/dl Albumin (3.4-5.0) gm/dl Globulin (2.5-4.0) gm/dl Albumin/Globulin Ratio (0.9-2) Lipase 131 (73-393) U/L Adenovirus (PCR) (NotDetected) B. pertussis DNA (PCR) (NotDetected) B.parapertussis DNA PCR (NotDetected) Lyme Disease IgG Ab (Negative) Lyme Disease IgM Ab (Negative) C. pneumoniae DNA (PCR) (NotDetected) Coronavirus OC43 (PCR) (NotDetected) Coronavirus HKU1 (PCR) (NotDetected) Coronavirus 229E (PCR) (NotDetected) COVID-19 Eval Order COVID-19 PCR (NotDetected) Coronavirus NL63 (PCR) (NotDetected) Human Metapneumovir PCR (NotDetected) Influenza Type A (PCR) (NotDetected) Influenza Type B (PCR) (NotDetected) M. pneumoniae (PCR) (NotDetected) Parainfluenza 1 (PCR) (NotDetected) Parainfluenza 2 (PCR) (NotDetected) Parainfluenza 3 (PCR) (NotDetected) Parainfluenza 4 (PCR) (NotDetected) RSV (PCR) (NotDetected) Entero/Rhino (PCR) (NotDetected) 01/29/20 Range/Units 13:47 WBC 8.91 (4.8-10.8) K/uL RBC 3.99 L (4.2-5.4) M/uL Hgb 11.8 L (12.0-16.0) g/dL Hct 36.1 L (37-47) % MCV 90.5 (80-100) fL MCH 29.6 (25-34) pg MCHC 32.7 (32-36) g/dL RDW Std Deviation 45.7 (36.4-46.3) fL RDW Coeff of Krystal 13.7 (11.5-14.5) % Plt Count 242 (130-400) K/uL MPV 10.2 (7.4-10.4) fL Immature Gran % (Auto) 0.2 % Neut % (Auto) 80.0 % Lymph % (Auto) 13.4 % Dim[place] % (Auto) 6.2 % Eos % (Auto) 0.1 % Baso % (Auto) 0.1 % Neut # (Auto) 7.13 H (1.4-6.5) K/uL Lymph # (Auto) 1.19 L (1.2-3.4) K/uL [place] # (Auto) 0.55 (0.11-0.59) K/uL Eos # (Auto) 0.01 (0-0.5) K/uL Baso # (Auto) 0.01 (0-0.2) K/uL Immature Gran # (Auto) 0.02 (0.00-0.02) K/uL ESR (0-21) mm/hr PT (9.0-12.0) Seconds INR (0.9-1.1) APTT (21.0-31.0) Seconds PTT Ratio Sodium (136-145) mmol/L Potassium (3.5-5.1) mmol/L Chloride (98-107) mmol/L Carbon Dioxide (21-32) mmol/L Anion Gap (3-11) BUN (7-18) mg/dl Creatinine (0.6-1.2) mg/dl Est Cr Clr Drug Dosing ml/min Est GFR ( Amer) Est GFR (Non-Af Amer) BUN/Creatinine Ratio (10-20) Glucose (70-99) mg/dl Calcium (8.5-10.1) mg/dl Total Bilirubin (0.2-1) mg/dl AST (15-37) U/L ALT (12-78) U/L Alkaline Phosphatase (45-117) U/L Total Creatine Kinase (26-192) U/L Troponin I (0-0.045) ng/ml Total Protein (6.4-8.2) gm/dl Albumin (3.4-5.0) gm/dl Globulin (2.5-4.0) gm/dl Albumin/Globulin Ratio (0.9-2) Lipase (73-393) U/L Adenovirus (PCR) (NotDetected) B. pertussis DNA (PCR) (NotDetected) B.parapertussis DNA PCR (NotDetected) Lyme Disease IgG Ab (Negative) Lyme Disease IgM Ab (Negative) C. pneumoniae DNA (PCR) (NotDetected) Coronavirus OC43 (PCR) (NotDetected) Coronavirus HKU1 (PCR) (NotDetected) Coronavirus 229E (PCR) (NotDetected) COVID-19 Eval Order COVID-19 PCR (NotDetected) Coronavirus NL63 (PCR) (NotDetected) Human Metapneumovir PCR (NotDetected) Influenza Type A (PCR) (NotDetected) Influenza Type B (PCR) (NotDetected) M. pneumoniae (PCR) (NotDetected) Parainfluenza 1 (PCR) (NotDetected) Parainfluenza 2 (PCR) (NotDetected) Parainfluenza 3 (PCR) (NotDetected) Parainfluenza 4 (PCR) (NotDetected) RSV (PCR) (NotDetected) Entero/Rhino (PCR) (NotDetected) PG Care Time/CCT Total # of Minutes Spent Total Time Spent with Patient: Total time spent is greater than 50% in coordination of care (as documented) at patient's floor/unit and/or counseling patient: Coding Level of Care Code 04672 Subseq Hosp Care Lvl 3 Diagnoses Pericarditis I31.9 Chest pain R07.9 Chest pain type: unspecified Pleural effusion J90 Viral illness B34.9 Essential hypertension I10 Breast cancer C50.919 Morbid obesity E66.01 Anxiety F41.9 DVT prophylaxis Z29.9 (1) Chest pain Chest pain type: unspecified Qualified Code(s): R07.9 - Chest pain, unspecified
[2020-01-30] MEDS: KETOROLAC TROMETHAMINE 15 MG/ML VIAL IV PRN ×2 (12:52→19:34)
--- NOTE | 2020-01-30 13:24 | Cardiology Consultation ---
Date of Consultation January 30, 2020 Assessment & Plan (1) Pericarditis: -suspect myopericarditis as troponin mildly elevated. -agree with Toradol and colchicine -may need to make the NSAIDS p.r.n. at discharge due to her gastric sleeve. -echocardiogram is pending. (2) Essential hypertension: -adequate control on atenolol and lisinopril. (3) Morbid obesity: -status post gastric sleeve November 2019. -may need to use nonsteroidal agents on a p.r.n. basis. History of Present Illness Attending Physician: Carline Bansal MD History of Present Illness Mrs. Lynch is a 49-year-old female admitted yesterday with a chest pain syndrome and a mildly elevated troponin I level. This consultation was ordered to assist in her cardiac management. The patient was in her usual state of health until approximately 1 week prior to presentation. She developed symptoms of coryza with rhinorrhea, sneezing, and nonproductive cough. Two days prior to presentation, the patient began to experience chest discomfort across her shoulders, upper back, and upper chest. Her discomfort became severe if she took a deep breath, or assume the supine position. Her discomfort dramatically improved if she sat up and leaned forward. She presented to an urgent care center for evaluation. At 1 point, she felt presyncopal and was found to have a systolic blood pressure 80. The ambulance was summoned and she received intravenous hydration on route to our hospital. The patient had a CT scan of the chest performed which noted a small to moderate pericardial effusion. Hospitalization was recommended for presumed myopericarditis. Currently, patient is resting comfortably at the bedside and her chest discomfort is dramatically improved since starting Toradol and colchicine. Past medical and surgical history 1. Hypertension 2. Venous insufficiency 3. Left breast carcinoma-October 2014 4. Obesity 5. Gastric sleeve-12/16/2019 6. Partial mastectomy-October 2014 7. Cholecystectomy 8. x3 Social history and lives with her No tobacco Social alcohol Family history Noncontributory Review of systems A 10 review systems was undertaken and negative except for that described above. Allergies Allergy/AdvReac Type Severity Reaction Status Date / Time adhesive AdvReac Mild Itchy rash Verified 01/29/20 12:57 to Tape/Steri Strips/Band Aids Home Medications Home Medications Medication Instructions Recorded Confirmed Type exemestane 25 mg tablet 25 mg PO DAILY #30 tab 03/26/19 01/29/20 Rx escitalopram oxalate 10 mg tablet 20 mg PO DAILY #90 tab 12/24/19 01/29/20 Rx pantoprazole 40 mg tablet,delayed 40 mg PO DAILY 12/24/19 01/29/20 History release lisinopril 30 mg tablet 30 mg PO DAILY #90 tab 01/08/20 01/29/20 Rx atenolol 50 mg tablet 50 mg PO DAILY #90 tab 01/15/20 01/29/20 Rx Patient History Medical History Anxiety BRCA negative Breast cancer (11/03/14) "Left breast, invasive ductal carcinoma, grade 2, ER/ND positive, Her2 negative, [id number], stage IA TREATMENT: lumpectomy and SLN. 11/19/14 Oncotype DX score 20 Status post post completion of systemic chemotherapy Started with Taxotere and Cytoxan, allergic reaction to Taxotere Completed chemotherapy with Adriamycin and Cytoxan BRCA1 and BRCA2 negative Status post completion of radiation therapy 06/13/2014 received 6640 cGy" On 07/12/15 15:58 Latoya Pathak wrote "Left breast, invasive ductal carcinoma, grade 2, ER/ND positive, Her2 negative, [id number], stage IA TREATMENT: lumpectomy and SLN. 11/19/14 Oncotype DX score 20 Status post post completion of systemic chemotherapy Started with Taxotere and Cytoxan, allergic reaction to Taxotere Completed chemotherapy with Adriamycin and Cytoxan BRCA1 and BRCA2 negative Status post completion of radiation therapy 06/13/2014 received 6640 cGy" On 06/20/15 11:10 Latoya Pathak wrote "Left breast, invasive ductal carcinoma, grade 2, ER/ND positive, Her2 negative, [id number], stage IA TREATMENT: lumpectomy and SLN. 11/19/14 Oncotype DX score 20 Status post post completion of systemic chemotherapy BRCA1 and BRCA2 negative Status post completion of radiation therapy 06/13/2014 received 6640 cGy" On 12/08/14 13:15 Mikayla Correa wrote "Left breast, invasive ductal carcinoma, grade 2, ER/ND positive, Her2 negative, [id number], stage IA TREATMENT: lumpectomy and SLN. 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) Status post partial mastectomy of left breast (11/19/14) Family History Son Autism Sister Diabetes Gallbladder disease Grandmother (Maternal) Diabetes Father Urinary bladder cancer Mother Hypertension Stroke Denies family history of Ovarian cancer Prostate cancer Myocardial infarction Breast cancer Lung cancer Colorectal cancer Social History Smoking Status: Never smoker packs per day: 2; Second Hand Exposure: No; Hx Alcohol Use: No Hx Substance Use: No Preferred Language: Setswana Communication Ability: Effective Visual Impairment: No Limitations Hearing Ability: Normal Verifier Required: No Beliefs That Will Affect Care: None marital status: Current Living Situation: Spouse Current Living Situation Comment: with spouse and 2 children current occupational status: unemployed current occupation: house- Other Information That Helps Us Care for You: No Feels Safe at Home: Yes Safety Concerns: Feels Safe At This Time Childhood Exposure to Second-Hand Smoke: No Diet Comment: regular caffeine: Yes during the past year weight has: increased > 10 lbs Dental Care, Regularly: Yes Physical Activity Frequency: Does not Exercise Seatbelt Use: always Sunscreen Use: No Assistive Devices: Glasses Physical Exam Physical Exam: In general this is an obese white female in no acute distress. HEENT exam is negative. Neck is supple with full carotid upstrokes. There are no carotid bruits. Jugular venous pressure is flat at 90. There is no thyromegaly. Cardiovascular exam reveals a regular rhythm with a normal S1 and S2. No S3, S4, or murmurs are noted. Lungs are clear without rales, rhonchi, or wheezes. Abdomen is soft and nontender without bruits. Extremities reveal intact radial artery and posterior tibial pulses bilaterally. There is no peripheral edema. Results & Data ([facility]) Vital Signs (Past 12 Hours) Vital Signs Temp Pulse Pulse Resp BP BP Pulse Ox 01/30/20 12:09 37.1 C 77 17 144/81 H 95 01/30/20 08:21 36.9 C 85 17 132/87 95 01/30/20 08:00 67 01/30/20 04:12 37.0 C 01/30/20 04:10 93 H 17 125/80 01/30/20 04:00 78 22 94 01/30/20 03:50 79 21 93 01/30/20 03:40 78 20 93 01/30/20 03:30 78 21 93 01/30/20 03:20 81 22 93 01/30/20 03:10 79 94 01/30/20 03:00 81 23 93 01/30/20 02:50 81 23 94 01/30/20 02:40 80 22 94 01/30/20 02:30 80 20 93 01/30/20 02:20 83 22 93 01/30/20 02:10 82 20 93 01/30/20 02:00 80 21 93 01/30/20 01:50 86 24 01/30/20 01:40 85 22 92 01/30/20 01:30 84 20 93 Laboratory Results CBC notes hemoglobin 11.8, hematocrit 36.1, white count 8.9, platelet count [id number]. Electrolytes noted sodium of 138, potassium 3.6, chloride 107, bicarb 26, BUN 19, creatinine 0.68, glucose of 110. Troponin I level on presentation was 0.039 with a follow-up value of 0.125. Viral screen notes rhino virus. Diagnostic Findings EKG notes normal sinus rhythm and nonspecific T-wave abnormality. CT scan of chest notes a small pleural effusion and a small to moderate pericardial effusion. PG Care Time/CCT Total # of Minutes Spent Total Time Spent with Patient: Total time spent is greater than 50% in coordination of care (as documented) at patient's floor/unit and/or counseling patient: Coding Level of Care Code 45969 Inpt Consult Level 4 Diagnoses Pericarditis I31.9 Essential hypertension I10 Morbid obesity E66.01
--- NOTE | 2020-01-30 13:54 | XCELERA ---
[id number]___[id number]
[2020-01-30] MEDS: ACETAMINOPHEN 325 MG TAB PO PRN (19:34)
[2020-01-31 07:49] LABS: BUN Creatinine Ratio 33.2 (10-20); Calcium 9.4 mg/dl (8.5-10.1); Est GFR (African American) 124.2; Est GFR (Non-African American) 107.2; Potassium 3.5 mmol/L (3.5-5.1)
[2020-01-31] MEDS: COLCHICINE 0.6 MG TAB PO SCH ×2 (08:31→19:48)
[2020-01-31] MEDS: ACETAMINOPHEN 325 MG TAB PO PRN ×3 (08:31→18:55)
[2020-01-31] MEDS: ESCITALOPRAM OXALATE 20 MG TAB PO SCH (08:31)
[2020-01-31] MEDS: PANTOprazole 40 MG TAB PO SCH ×2 (08:31→18:56)
[2020-01-31] MEDS: SODIUM CHLORIDE 0.9% 1000ML 1,000 ML IV SCH ×2 (10:36→19:48)
--- NOTE | 2020-01-31 11:37 | Cardiology Progress Note ---
Date of Service January 31, 2020 Assessment & Plan (1) Pericarditis: -suspect myopericarditis as troponin mildly elevated. -agree with colchicine. -would use NSAIDS p.r.n. due to her gastric sleeve. -echocardiogram notes normal systolic function and a small pericardial effusion. (2) Essential hypertension: -adequate control on current regimen. (3) Morbid obesity: -status post gastric sleeve November 2019. -use nonsteroidal agents on a p.r.n. basis. Admission and Anticipated Discharge Date Admission Date: January 29, 2020 Subjective The patient is resting comfortably in bed and notes only mild discomfort across her upper chest. Greatly improved over yesterday. Physical Exam Physical Exam: In general this is an obese white female in no acute distress. HEENT exam is negative. Neck is supple with full carotid upstrokes. There are no carotid bruits. Jugular venous pressure is flat at 90. There is no thyromegaly. Cardiovascular exam reveals a regular rhythm with a normal S1 and S2. No S3, S4, or murmurs are noted. Lungs are clear without rales, rhonchi, or wheezes. Abdomen is soft and nontender without bruits. Extremities reveal intact radial artery and posterior tibial pulses bilaterally. There is no peripheral edema. Results & Data ([facility]) Vital Signs (Past 12 Hours) Vital Signs Temp Pulse Pulse Resp BP Pulse Ox 01/31/20 08:00 76 01/31/20 07:45 37.8 C H 90 18 131/80 98 01/31/20 03:35 36.8 C 75 16 113/76 97 01/31/20 00:00 73 Diagnostic Findings Echocardiogram notes normal systolic function with ejection fraction of 60-65%. There is a small pericardial effusion. monitor worker is benign. PG Care Time/CCT Total # of Minutes Spent Total Time Spent with Patient: Total time spent is greater than 50% in coordination of care (as documented) at patient's floor/unit and/or counseling patient: Coding Level of Care Code 40351 Subseq Hosp Care Lvl 3 Diagnoses Pericarditis I31.9 Essential hypertension I10 Morbid obesity E66.01
--- NOTE | 2020-01-31 12:47 | CT Scan Report ---
CT SCAN OF THE PARANASAL SINUSES CLINICAL HISTORY: Fever. COMPARISON STUDY: No priors. TECHNIQUE: High-resolution CT scan of the paranasal sinuses is performed. Images are reviewed in the axial, sagittal, and coronal planes. IV contrast was not administered for this examination. A dose lowering technique was utilized adhering to the principles of ALARA. CT DOSE: 578.50 mGy.cm FINDINGS: Maxillary antra: Clear bilaterally. Anterior ethmoid sinuses: Clear. Posterior ethmoid sinuses: Clear. Sphenoid sinuses: Clear. Frontal sinuses: The frontal sinuses are diminutive but clear. Ostiomeatal complexes: Patent bilaterally. Frontoethmoidal and sphenoethmoidal recesses: Patent bilaterally. Carotid arteries: The carotid arteries are covered noting bilateral septal attachments. Ethmoid roofs: There is slightly asymmetric elevation of the left ethmoid roof as compared to the rig ht. Nasal turbinates: Normal in appearance. Nasal septum: There is mild rightward deviation of the bony nasal septum. An unerupted tooth is noted in the left maxilla and image #83. This protrudes into the nasopharynx. Optic nerves: Covered. Orbits: The bony orbits are intact. Orbital contents are normal in appearance. Calvarium: The imaged calvarium is normal in appearance Mastoid air cells: Well pneumatized. Brain parenchyma: Partially visualized brain parenchyma is within normal limits. IMPRESSION: No paranasal sinus disease is identified. ACT 112: Negative or not required by law. Electronically signed by: Yaniv Banks M.D. 01/31/2020 12:46 PM
--- NOTE | 2020-01-31 18:48 | Hospitalist Progress Note ---
Date of Service January 31, 2020 Assessment & Plan (1) Pericarditis: Presented with 1 week of preceding viral illness with Rhino/Entero virus (confirmed here) followed by acute onset of pleuritic type chest pain, worse with lying flat and improved with sitting up. With some brief hypotension and presyncope at urgent care prior to presentation [facility]. Hypotension resolved with IV fluids given by EMS on the way to the ER CTA Chest neg for PE but showed small-mod pericardial effusion and small bilat pleural effusions. ESR high at 50. ECG with nonspecific TW changes. Now with mildly elevated troponin since admission--> peaked at 0.6 Bio fire positive for rhino/enterovirus which is likely cause of the myopericarditis given the preceding viral illness; COVID negative both on 01/28 and repeated again on 01/30 for continued fever No arrhythmias on tele ECHO with small pericardial effusion, LVEF 60-65%, no cardiac tamponade Cardiology consult appreciated-agrees with colchicine and as needed use of NSAIDs -She developed fevers and worsening pain after discontinuing NSAIDs -with recent h/o gastric sleeve, she unfortunately is not to take NSAIDs- received 3 doses of Toradol with excellent response. Since stopping the Toradol, she is having worsening of pain again and has trouble taking a deep breath. -Discontinue Toradol for now, but suggested we could reach out to her bariatric surgeon at [facility] on Saturday to see if they would approve PRN use of ibuprofen upon discharge -continue PPI for GI protection -continue colchicine x 1-2 months -Recommend follow-up with cardiology in 2 to 3 weeks for repeat echocardiogram -Continue acetaminophen as needed for pain and fever (2) Chest pain: Secondary to pericarditis as above, no PE or pneumonia Trop positive but not acute coronary syndrome Treatment as above (3) Fever: Spiked a fever on the evening of 01/29 and some low-grade fevers on 01/30. She reports she had actually been feeling better from her cold symptoms started approximately 10 days ago and now feels worse. She still has some pressure in the frontal region of her head, only clear rhinorrhea, no sore throat, mild cough with clear sputum, no abdominal pains or urinary symptoms. No rashes or joint pains. No headaches or neck pain. Question if has secondary acute bacterial sinusitis-performed CT scan of the sinuses which was negative Seems unlikely that she would spike a fever from the entero-/rhinovirus this far into the course of her illness. Repeat COVID-19 test 48 hours from the last remains negative Fever could be secondary to myopericarditis -Given recent creation of gastric sleeve, she feels she is unable to adequately hydrate by mouth and feels dehydrated. BUN up slightly -Start IV fluids with normal saline 100 mL's per hour Tylenol as needed for fever -Check blood cultures if has another fever-none were drawn at the time she spiked fever last night (4) Pleural effusion: Small bilateral pleural effusions, likely secondary to recent post viral inflammatory condition (5) Viral illness: Negative COVID-19, biofire as above +Entero/Rhinovirus -Droplet precautions -O2 sat stable on RA -Supportive care -Hemodynamically stable (6) Essential hypertension: -Continue atenolol 50 mg, lisinopril 30 mg, patient routinely takes medications in evening. She stopped her HCTZ several weeks ago due to low blood pressure after losing 40 pounds from gastric sleeve (7) Breast cancer: -ER MS positive, HER-2/bethany negative, stage I, originally diagnosed 2014, left breast. -Status post chemo and XRT, currently on exemestane -Follows with Neisha Colmenares at the [facility] (8) Morbid obesity: -BMI 47.8, s/p gastric sleeve 12/16/2019 and has already lost 40 pounds in 6 weeks, diet and exercise to be encouraged (9) Anxiety: -History of such, continue Lexapro 20 mg daily (10) DVT prophylaxis: - teds, scds, encourage ambulation CODE: Full Dispo: continued stay on PCU for myopericarditis with chest pain and fevers Admission and Anticipated Discharge Date Admission Date: January 29, 2020 Subjective Patient reports still has chest pain but is improved from previous. However, since she has been refraining from taking Toradol, the pain has worsened with taking a deep breath. Tylenol does help a little bit. She milligrams a headache. No sore throat or runny nose but feels like she has a "head cold." She is only having clear mucus blown from her nose. She is coughing up clear mucus occasionally. She spiked a fever last night and some low-grade fevers today and just feels very rundown. She feels dehydrated like she cannot drink enough because of her gastric sleeve surgery. She denies facial pain or pain in the teeth. She denies any abdominal pain or urinary symptoms. She did have a loose stool this morning but she has been on colchicine. She has been able to eat and drink, no nausea or vomiting. I checked on her several times throughout the day and in the evening, she still did not feel like she was ready to go home after 1 L of IV fluid hydration. Telemetry with normal sinus rhythm and some sinus tachycardia with rates in the 80s mostly. I discussed the case with cardiology. Review of Systems Review of Systems: All systems reviewed & are unremarkable except as noted in HPI & below Denies neck pain or back pain Physical Exam Constitutional: WD/WN, vitals as above + obese Eyes: + anicteric sclerae; no conjunctival abnormality ENMT: external ear and nose normal, oropharynx normal Nose: no nasal discharge, no sinus tenderness and no facial tenderness Neck: trachea midline, no thyromegaly Respiratory: normal respiratory effort, lungs clear to auscultation Cardiovascular: RRR, no murmur, no edema Gastrointestinal (Abdomen): normal bowel sounds, soft, nontender, no hepatosplenomegaly Musculoskeletal: Extremities: extremities normal to inspection; no cyanosis and no clubbing Skin: no rashes, warm and dry Neurologic: moves all extremities and awake; no focal motor deficits Psychiatric: Orientation: alert, oriented x 3 and cooperative Affect: + flat affect Lymphatic: no lymphedema Results & Data Results & Data ([facility]) Vital Signs (Past 12 Hours) Vital Signs Temp Pulse Pulse Pulse Resp BP Pulse Ox 01/31/20 16:30 37.6 C H 83 18 150/86 H 93 01/31/20 12:59 36.9 C 79 130/73 95 01/31/20 08:00 76 01/31/20 07:45 37.8 C H 90 18 131/80 98 Laboratory Results 01/31/20 01/31/20 01/31/20 Range/Units Unknown Unknown 07:02 Sodium 140 (136-145) mmol/L Potassium 3.5 (3.5-5.1) mmol/L Chloride 107 (98-107) mmol/L Carbon Dioxide 26 (21-32) mmol/L Anion Gap 7.0 (3-11) BUN 20 H (7-18) mg/dl Creatinine 0.61 (0.6-1.2) mg/dl Est Cr Clr Drug Dosing 146.0 ml/min Est GFR ( Amer) 124.2 Est GFR (Non-Af Amer) 107.2 BUN/Creatinine Ratio 33.2 H (10-20) Glucose 92 (70-99) mg/dl Calcium 9.4 (8.5-10.1) mg/dl Magnesium 2.0 (1.8-2.4) mg/dl Troponin I (0-0.045) ng/ml COVID-19 Eval Order Covid19 Done at [facility] COVID-19 PCR NEGATIVE (Negative) 01/30/20 Range/Units 22:23 Sodium (136-145) mmol/L Potassium (3.5-5.1) mmol/L Chloride (98-107) mmol/L Carbon Dioxide (21-32) mmol/L Anion Gap (3-11) BUN (7-18) mg/dl Creatinine (0.6-1.2) mg/dl Est Cr Clr Drug Dosing ml/min Est GFR ( Amer) Est GFR (Non-Af Amer) BUN/Creatinine Ratio (10-20) Glucose (70-99) mg/dl Calcium (8.5-10.1) mg/dl Magnesium (1.8-2.4) mg/dl Troponin I 0.319 H* (0-0.045) ng/ml COVID-19 Eval Order COVID-19 PCR (Negative) PG Care Time/CCT Total # of Minutes Spent Total Time Spent with Patient: Total time spent is greater than 50% in coordination of care (as documented) at patient's floor/unit and/or counseling patient: Coding Level of Care Code 80546 Subseq Hosp Care Lvl 3 Diagnoses Pericarditis I31.9 Chest pain R07.9 Chest pain type: unspecified Fever R50.9 Pleural effusion J90 Viral illness B34.9 Essential hypertension I10 Breast cancer C50.919 Morbid obesity E66.01 Anxiety F41.9 DVT prophylaxis Z29.9 (1) Chest pain Chest pain type: unspecified Qualified Code(s): R07.9 - Chest pain, unspecified
[2020-01-31] MEDS: lisinopriL 10 MG TAB PO SCH (18:55)
[2020-01-31] MEDS: ATENOLOL 50 MG TABLET PO SCH (18:56)
[2020-02-01] MEDS: ACETAMINOPHEN 325 MG TAB PO PRN (00:23)
[2020-02-01] MEDS: SODIUM CHLORIDE 0.9% 1000ML 1,000 ML IV SCH (04:05)
[2020-02-01] MEDS: ESCITALOPRAM OXALATE 20 MG TAB PO SCH (07:47)
[2020-02-01] MEDS: COLCHICINE 0.6 MG TAB PO SCH (07:47)
[2020-02-01 08:23] LABS: Basophils # (auto) 0.01 K/uL (0-0.2); Basophils % (auto) 0.1 %; Eosinophils # (auto) 0.09 K/uL (0-0.5); Eosinophils % (auto) 1.3 %; Hematocrit (blood only) 35.3 % (37-47); Hemoglobin 11.6 g/dL (12.0-16.0); Immature Granulocytes # (auto) 0.02 K/uL (0.00-0.02); Immature Granulocytes % (auto) 0.3 %; Lymphocytes # (auto) 1.33 K/uL (1.2-3.4); Lymphocytes % (auto) 19.3 %; Mean Corpuscular Hemoglobin 29.5 pg (25-34); Mean Corpuscular Hgb Conc 32.9 g/dL (32-36); Mean Corpuscular Volume 89.8 fL (80-100); Mean Platelet Volume 9.9 fL (7.4-10.4); Monocytes # (auto) 0.51 K/uL (0.11-0.59); Monocytes % (auto) 7.4 %; Neutrophils # (auto) 4.94 K/uL (1.4-6.5); Neutrophils % (auto) 71.6 %; Platelet Count 312 K/uL (130-400); RDW Coefficient of Variation 13.5 % (11.5-14.5); RDW Standard Deviation 44.8 fL (36.4-46.3); Red Blood Count 3.93 M/uL (4.2-5.4)
[2020-02-01 08:49] LABS: Albumin Level 3.1 gm/dl (3.4-5.0); BUN Creatinine Ratio 25.3 (10-20); Calcium 9.4 mg/dl (8.5-10.1); Creatinine Clr Calc Pharmacy 143.5 ml/min; Est GFR (African American) 122.9; Est GFR (Non-African American) 106.1; Potassium 3.5 mmol/L (3.5-5.1)
[2020-02-01 08:58] LABS: Bilirubin Direct 0.2 mg/dl (0-0.2); Bilirubin,Total 0.6 mg/dl (0.2-1); Phosphorus 2.8 mg/dl (2.5-4.9); Total Protein 7.6 gm/dl (6.4-8.2)
--- NOTE | 2020-02-01 12:49 | Discharge Summary ---
Date of Service date of admission - January 29, 2020 date of discharge - February 01, 2020 Admission HPI Per Admitting Provider This is a 49 yo F with PMHx of Breast cancer currently on exemestane, s/p sleeve gastrectomy on 12/16/[address] Tyshawn Natarajan at [facility] [place], HTN, morbid obesity with BMI of 47.8, who presents with acute onset of chest pain which started yesterday. She report having had a cold within the past week, symptoms include runny nose, headache, sore throat, postnasal drip, nausea reports her children and her now have it. She reports feeling like her cold was improving, however yesterday noticed significant sharp pain radiating to the back when she would take deep breaths. She went to an urgent care center this morning. While she was sitting in the waiting room felt acute lightheadedness, flushed and became nauseous. She was able to tell the field education director "something is not right" and was taken back into an evaluation room. There she was noted to be hypotensive with SBP =80. EMS was called, and was given IV fluids in route to the hospital. Currently she has mild chest pain at rest, worse with deep breaths, worse with leaning backwards/laying flat and improves with leaning forward. She denies any recent sick contacts other than her immediate family, denies any known COVID-19 positive contacts. In regards to her gastric sleeve surgery she had follow-up at 2 weeks and is scheduled to go back again next week for further follow-up. Everything had been going well and has not had any significant bouts of vomiting, diarrhea, abdominal pain, fever, chills or sweats. Her blood pressure has improved to being 180s/105, she is due to take her routine medications this evening which include atenolol, lisinopril. Principal Diagnosis viral pericarditis Discharge Exam Constitutional well developed and well nourished; no acute distress and no altered mental status ENMT external ear and nose normal, oropharynx normal Respiratory normal respiratory effort, lungs clear to auscultation Auscultation: + diminished lung sounds (Bases ) Cardiovascular Rate/Rhythm: regular rate and regular rhythm Heart Sounds: normal S1 and normal S2; no murmur and no cardiac rub Vessels: posterior tibial pulses present and dorsalis pedis pulses present; no JVD Extremities: no edema Gastrointestinal (Abdomen) normal bowel sounds, soft, nontender, no hepatosplenomegaly Skin + rash (Irritant erythematous rash right abdominal wall extending to flank) Psychiatric A+Ox3, euthymic affect Discharge Data Allergies Allergy/AdvReac Type Severity Reaction Status Date / Time adhesive AdvReac Mild Itchy rash Verified 02/03/20 10:05 to Tape/Steri Strips/Band Aids Consultations [facility] Ordered Studies 01/29/20 12:31 CT angio chest PE protocol Stat IMPRESSION: 1. No evidence of pulmonary thromboembolic disease. 2. Small pleural effusions with [id number] pericardial effusion. 3. Bibasilar and dependent predominant, left greater than right groundglass and linear consolidative opacities favor atelectasis however a nonspecific infectious or inflammatory pneumonitis would be difficult to exclude. 4. No adenopathy. 5. Prior gastric bypass. 01/31/20 10:15 CT sinus wo con Urgent IMPRESSION: No paranasal sinus disease is identified. Echocardiogram: * normal EF * small pericardial effusion * no echocardiographic evidence of tamponade Hospital Course (1) Acute viral pericarditis: The patient's symptoms, constellation of findings including elevated inflammatory markers and pericardial effusion, and response to NSAIDs were all consistent with pericarditis. She likely had myocardial involvement as her troponins were mildly elevated -- peak 0.6. COVID-19 testing was negative x 2. [employer] respiratory panel was positive for rhinovirus. Thus, her myopericarditis was likely due to such. She was seen in consult by [facility] who advised a combination of colchicine and NSAIDs. Prior to discharge we contacted the surgical office in [place] who had performed her gastric sleeve procedure. Short-term NSAIDs were felt to be acceptable in light of her pericarditis but they advised against flight reservations manager use. Thus, the following were recommended at discharge: * colchicine 0.6mg BID - likely to remain on such for 3 months or longer * ibuprofen 600mg BID x 10 days * pantoprazole for GI prophylaxis; 40mg BID She will follow-up with [facility] in 3-4 weeks post-discharge. (2) Morbid obesity with BMI of 45.0-49.9, adult: Has lost 50+ pounds since her gastric sleeve procedure. (3) Status post gastric bypass for obesity: Gastric sleeve procedure, performed at [facility]. (4) Pleural effusion: Likely 2nd to rhinovirus infection. She did not have evidence of acute CHF or tamponade from her pericardial effusion. O2 sats in room air wree normal during the stay. (5) Essential (primary) hypertension: Continue atenolol and lisinopril as previous. (6) History of breast cancer: (7) Contact dermatitis: irritant rash on abdominal wall from color television console monitor leads. Use triamcinolone cream 0.1% TID for 10 days post-discharge along with gentle soap during showers. Total Time Total Time Spent Total Time Spent (In Minutes): 50 Total Time Includes: Examination of the Patient, Discharge Planning, Medication Reconciliation and Communication With Other Providers Discharge Plan Discharge Items Patient Disposition: Home - Self-Care Reason For Visit: PERICARDIAL EFFUSION, CHEST PAIN Discharge Diagnosis: Viral pericarditis -- due to rhinovirus (a common cold virus) Activity: As commented below Activity Comment: gradually increase activites over next 7-10 days Bathing: No limitations Sexual Activity: Wait until after follow-up appointment Exercise/Sports: Wait until after follow-up appointment Driving/Machine Use: ok to resume driving when pain is limited and controlled Non-emergency contact: Primary Care Provider and Partition Notcher Call non-emergency contact if: you have any medication questions, your symptoms worsen, your pain is not controlled and your pain is worsening Follow-up/Referrals: Madhu Jorgensen MD [Physician] - 03/02/20 10:00 am (see Dr Jorgensen in 4-6 weeks ) Dari Bowman DO [Primary Care Provider] - 02/08/20 9:20 am (see Dr Bowman in 5-7 days ) Diet: Heart Healthy Addtl Attending Provider Instructions: You presented to the hospital with chest pain. A CAT scan of the chest was performed showing fluid in the sac of the heart. This is called a pericardial effusion. We tested you for various viruses as this is one of the most common causes of developing fluid in the sac of the heart. COVID-19 tests x 2 were NEGATIVE. A viral panel, however, showed that you have "rhinovirus" which is a very common cold virus. Your family members likely all have the same virus right now. This virus is causing the fluid and inflammation in the sac of the heart/pericardium. We use the term "pericarditis" to describe the condition that you have. Viral pericarditis is treated with colchicine and ibuprofen. The ibuprofen will be short-term, and the colchicine will be for several months. I spoke with the surgical office in [place] and they are ok with SHORT-TERM use of ibuprofen for your pericarditis. Recommendations: 1. colchicine 0.6mg twice daily. Take this dose until you see Dr Jorgensen from [facility]. 2. ibuprofen 600mg twice daily for 10 DAYS ONLY. Take with food. 3. INCREASE your pantoprazole to 40mg TWICE DAILY to protect your stomach from the ibuprofen. 4. No heavy exertional activity until you see Dr Bowman as this will likely make your symptoms worse. 5. No alcohol, spicy foods, fried foods, etc. No aspirin use. 6. Raise the head of the bed when sleeping. This will help prevent pericarditis symptoms while sleeping. 7. Triamcinolone cream three times daily in thin amounts to the rash on your abdomen for 7-10 days. Gentle soap when showering. 8. see Dr Jorgensen in 4-6 weeks from [facility]. 9[address] Bowman in 5-7 days - your family doctor. You may have some low-grade fever over the next 2-3 days as things calm down in the heart. If you develop a large temperature spike (101 degrees or more) please let your family doctor know, however. Return to [facility] if - * you have persistent fevers over 101 degrees * you have worsening shortness of breath * you have worsening chest pains * you have severe abdominal pain * you see blood in your stool, or black/dark stool * you have abdominal pain with eating * you develop significant fluid retention in your legs * any other concerns Pending Studies at Discharge: No Stand-Alone Forms: My [facility] [employer], Smoking Cessation Medications and DC Order Prescriptions: New triamcinolone acetonide 0.1 % Cream 1 applic EXT TID Qty: 30 RF: 0 colchicine [Colcrys] 0.6 mg Tablet 0.6 mg PO BID Qty: 60 RF: 2 ibuprofen 600 mg tablet 600 mg PO BID 10 Days Qty: 20 RF: 0 Continued escitalopram oxalate 10 mg tablet 20 mg PO DAILY Qty: 90 RF: 1 lisinopril 30 mg tablet 30 mg PO DAILY Qty: 90 RF: 1 atenolol 50 mg tablet 50 mg PO DAILY Qty: 90 RF: 1 exemestane 25 mg tablet 25 mg PO DAILY Qty: 30 RF: 2 Changed pantoprazole 40 mg tablet,delayed release (DR/EC) 40 mg PO BID Qty: 60 RF: 2 Discharge Orders: Discharge Order (Routine); Ordered 02/01/20 Ordered By: Dread Nolen/Other Patient Handouts: Taking NSAIDs Safely, Pericarditis, Colchicine tablets or capsules, Ibuprofen tablets and capsules Admission Data Admit Date/Time: 01/29/20 16:13 Attending Provider: Dread Collier Admit Provider: Carline Bansal Primary Care Provider: Dari Bowman Other Providers: Bob Whittington ; Amauri Pope Other Interventions: Discharge Summary Assessment (RN) Last Done: 02/01/20 13:25 Coding Level of Care Code D/C Day Management >30 mins Diagnoses Acute viral pericarditis I30.1 Morbid obesity with BMI of 45.0-49.9, adult E66.01; Z68.42 Status post gastric bypass for obesity Z98.84 Pleural effusion J90 Essential (primary) hypertension I10 History of breast cancer Z85.3 Contact dermatitis L25.9
--- NOTE | 2020-02-01 13:47 | Cardiology Progress Note ---
Date of Service February 01, 2020 Assessment & Plan (1) Pericarditis: -suspect myopericarditis as troponin mildly elevated on presentation. -agree with colchicine. -would use NSAIDS p.r.n. due to her gastric sleeve. -echocardiogram notes normal systolic function and a small pericardial effusion. -consider repeat echocardiogram as an outpatient. (2) Essential hypertension: -adequate control on current regimen. (3) Morbid obesity: -status post gastric sleeve November 2019. -use nonsteroidal agents on a p.r.n. basis. Admission and Anticipated Discharge Date Admission Date: January 29, 2020 Subjective Resting comfortably in bed with complaints of mild left-sided chest discomfort she is anxious for hospital discharge. Physical Exam Physical Exam: In general this is an obese white female in no acute distress. HEENT exam is negative. Neck is supple with full carotid upstrokes. There are no carotid bruits. Jugular venous pressure is flat at 90. There is no thyromegaly. Cardiovascular exam reveals a regular rhythm with a normal S1 and S2. No S3, S4, or murmurs are noted. Lungs are clear without rales, rhonchi, or wheezes. Abdomen is soft and nontender without bruits. Extremities reveal intact radial artery and posterior tibial pulses bilaterally. There is no peripheral edema. Results & Data ([facility]) Vital Signs (Past 12 Hours) Vital Signs Temp Pulse Pulse Resp BP Pulse Ox 02/01/20 13:25 36.9 C 80 19 148/88 H 95 02/01/20 10:56 36.9 C 80 19 148/88 H 95 02/01/20 08:00 61 02/01/20 07:14 36.7 C 75 16 153/83 H 94 02/01/20 04:24 36.6 C 74 16 137/76 95 Diagnostic Findings monitoring analyst is benign. PG Care Time/CCT Total # of Minutes Spent Total Time Spent with Patient: Total time spent is greater than 50% in coordination of care (as documented) at patient's floor/unit and/or counseling patient: Coding Level of Care Code 19612 Subseq Hosp Care Lvl 3 Diagnoses Pericarditis I31.9 Essential hypertension I10 Morbid obesity E66.01
[2020-02-01] MEDS ORDERED: TRIAMCINOLONE ACET 0.1% CR 80 GM TUBE EXT SCH (14:00)
[2020-02-02] MEDS ORDERED: INFLUENZA ADMINISTRATION CHARGE ONE (09:00)
[2020-02-02] MEDS ORDERED: INFLUENZA VIRUS QUAD VACCINE 0.5 ML SYR IM ONE (09:00)
== END 2020-02-01 15:00 | disposition home or self-care (01) | DRG 315 ==
LOC: ED 11:51 → SUATTDRO 16:13 → 1E 16:13 → 2S 01-30 07:11

== ENCOUNTER 2022-04-22 00:38 | Observation (INO) ==
[2022-04-22] MEDS ORDERED: ONDANSETRON INJ 2 MG/ML 2 ML VIAL IV STA (00:55)
[2022-04-22] MEDS ORDERED: MoRPHine SULFATE 2 MG/ML CARP IV STA (00:55)
--- NOTE | 2022-04-22 01:29 | Emergency Department Note ---
History of Present Illness General Chief complaint: Abdominal Pain Time Seen by Provider: 04/22/22 00:40 History of Present Illness Maximum Pain Intensity: 6 This is a 52-year-old female that presents to the emergency department via ambulance with complaints of "chest pain/abdominal pain". Patient notes that she and many of her family members have been experiencing cold-like symptoms o sahil the past few days including diarrhea. However she developed some chest discomfort today and points to the lower chest region as location of discomfort she noted that it radiated to the back and she notes that it seemed to take her breath away when it occurred. She then notes that it seemed to worsen and then just prior to arrival around 89 PM abruptly worsened and she became quite concerned about the symptoms. She notes that when the symptoms occurred earlier the pain was a 10/10. Current pain 6/10. She notes that she became quite diaphoretic with the symptoms that she experienced earlier. She also notes decreased oral intake over the past few days in regard to food. Patient has a history of gastric sleeve. She also notes some sinus congestion/headache over the past few days. She notes a history of cholecystectomy. No fever. Home Medications Medication Instructions Recorded Confirmed Type exemestane 25 mg tablet 25 mg PO DAILY #30 tabs 03/26/19 04/22/22 Rx cholecalciferol (vitamin D3) 25 0 mcg PO DAILY 03/09/20 04/22/22 History mcg (1,000 unit) tablet (Vitamin D3) multivitamin with iron 1 tab PO DAILY 03/09/20 04/22/22 History escitalopram oxalate 20 mg tablet 20 mg PO DAILY #30 tabs 10/30/21 04/22/22 Rx atenolol 25 mg tablet 25 mg PO DAILY #90 tabs 11/22/21 04/22/22 Rx calcium carbonate 600 mg calcium 0 mg PO DAILY 04/22/22 04/22/22 History (1,500 mg) tablet (Calcium) Allergies Allergy/AdvReac Type Severity Reaction Status Date / Time adhesive Allergy Intermediate Itchy rash Verified 04/22/22 01:19 to Tape/Steri Strips/Band Aids Past Med/Surg History Medical History Acute viral pericarditis Arthritis BRCA negative Breast cancer (11/03/14) "Left breast, invasive ductal carcinoma, grade 2, ER/OH positive, Her2 negative, [id number], stage IA TREATMENT: lumpectomy and SLN. 11/19/14 Oncotype DX score 20 Status post post completion of systemic chemotherapy Started with Taxotere and Cytoxan, allergic reaction to Taxotere Completed chemotherapy with Adriamycin and Cytoxan BRCA1 and BRCA2 negative Status post completion of radiation therapy 06/13/2014 received 6640 cGy" On 07/12/15 15:58 Latoya Pathak wrote "Left breast, invasive ductal carcinoma, grade 2, ER/OH positive, Her2 negative, [id number], stage IA TREATMENT: lumpectomy and SLN. 11/19/14 Oncotype DX score 20 Status post post completion of systemic chemotherapy Started with Taxotere and Cytoxan, allergic reaction to Taxotere Completed chemotherapy with Adriamycin and Cytoxan BRCA1 and BRCA2 negative Status post completion of radiation therapy 06/13/2014 received 6640 cGy" On 06/20/15 11:10 Latoya Pathak wrote "Left breast, invasive ductal carcinoma, grade 2, ER/OH positive, Her2 negative, [id number], stage IA TREATMENT: lumpectomy and SLN. 11/19/14 Oncotype DX score 20 Status post post completion of systemic chemotherapy BRCA1 and BRCA2 negative Status post completion of radiation therapy 06/13/2014 received 6640 cGy" On 12/08/14 13:15 Milkaearl Sunny wrote "Left breast, invasive ductal carcinoma, grade 2, ER/OH positive, Her2 neg ative, [id number], stage IA TREATMENT: lumpectomy and SLN. 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 Status post partial mastectomy of left breast (11/19/14) 2014 Family History Son Autism Sister Diabetes Gallbladder disease Grandmother (Maternal) Diabetes Father Urinary bladder cancer Hypertension Mother Hypertension Stroke Denies family history of Ovarian cancer Prostate cancer Myocardial infarction Breast cancer Lung cancer Colorectal cancer Social History Smoking Status: Former smoker Tobacco Type: Cigarettes Age Quit Using Tobacco: 45; packs per day: 0.5; Second Hand Exposure: No; Hx Alcohol Use: No Hx Substance Use: No Preferred Language: German Communication Ability: Effective Visual Impairment: No Limitations Hearing Ability: Normal Stripper Color Required: No Beliefs That Will Affect Care: None marital status: Current Living Situation: Spouse Current Living Situation Comment: with spouse and 2 children current occupational status: employed current occupation: [employer] How many Children do You have: 3 Other Information That Helps Us Care for You: No Feels Safe at Home: Yes Safety Concerns: Feels Safe At This Time Childhood Exposure to Second-Hand Smoke: No Diet Comment: regular caffeine: Yes during the past year weight has: decreased > 10 lbs Dental Care, Regularly: Yes Physical Activity Frequency: Daily Seatbelt Use: always Sunscreen Use: Yes Assistive Devices: Glasses Review of Systems A total of 10 systems reviewed and were otherwise negative Physical Exam Vital Signs Vital Signs - 24 hr 04/22/22 00:49 04/22/22 01:01 04/22/22 00:47 Temperature 36.9 C Temperature Source Oral Pulse Rate 63 64 Pulse Rate from SpO2 Sensor 64 Respiratory Rate 16 13 Respiratory Depth Normal Blood Pressure 126/75 Blood Pressure Mean 92 Pulse Oximetry 99 99 98 Oxygen Delivery Method Room Air Room Air Sepsis Recent Fever Within 48 Hours No Sepsis New/Unexplained Change in Mental Status N/A Sepsis Action Taken by Nursing No Action Required 04/22/22 00:50 04/22/22 01:00 04/22/22 01:32 Temperature Temperature Source Pulse Rate 62 66 Pulse Rate from SpO2 Sensor 64 65 63 Respiratory Rate 16 15 Respiratory Depth Blood Pressure Blood Pressure Mean Pulse Oximetry 99 99 100 Oxygen Delivery Method Sepsis Recent Fever Within 48 Hours Sepsis New/Unexplained Change in Mental Status Sepsis Action Taken by Nursing 04/22/22 01:39 04/22/22 01:39 04/22/22 01:40 Temperature Temperature Source Pulse Rate 61 57 L Pulse Rate from SpO2 Sensor 59 L 57 L Respiratory Rate 18 15 Respiratory Depth Blood Pressure 155/90 H Blood Pressure Mean 111 Pulse Oximetry 100 100 Oxygen Delivery Method Sepsis Recent Fever Within 48 Hours Sepsis New/Unexplained Change in Mental Status Sepsis Action Taken by Nursing 04/22/22 01:50 04/22/22 02:00 04/22/22 02:00 Temperature Temperature Source Pulse Rate 61 55 L Pulse Rate from SpO2 Sensor 61 Respiratory Rate 10 L 16 Respiratory Depth Blood Pressure 102/63 Blood Pressure Mean 76 Pulse Oximetry 100 Oxygen Delivery Method Sepsis Recent Fever Within 48 Hours Sepsis New/Unexplained Change in Mental Status Sepsis Action Taken by Nursing 04/22/22 02:10 04/22/22 02:20 04/22/22 02:30 Temperature Temperature Source Pulse Rate 62 57 L 59 L Pulse Rate from SpO2 Sensor 61 58 L 59 L Respiratory Rate 19 10 L 14 Respiratory Depth Blood Pressure Blood Pressure Mean Pulse Oximetry 100 100 98 Oxygen Delivery Method Sepsis Recent Fever Within 48 Hours Sepsis New/Unexplained Change in Mental Status Sepsis Action Taken by Nursing 04/22/22 02:40 04/22/22 02:50 04/22/22 03:04 Temperature Temperature Source Pulse Rate 59 L 83 Pulse Rate from SpO2 Sensor 59 L Respiratory Rate 16 19 Respiratory Depth Blood Pressure Blood Pressure Mean Pulse Oximetry 98 Oxygen Delivery Method Sepsis Recent Fever Within 48 Hours Sepsis New/Unexplained Change in Mental Status Sepsis Action Taken by Nursing 04/22/22 03:10 04/22/22 03:20 04/22/22 03:30 Temperature Temperature Source Pulse Rate 68 64 61 Pulse Rate from SpO2 Sensor Respiratory Rate 16 14 14 Respiratory Depth Blood Pressure Blood Pressure Mean Pulse Oximetry Oxygen Delivery Method Sepsis Recent Fever Within 48 Hours Sepsis New/Unexplained Change in Mental Status Sepsis Action Taken by Nursing 04/22/22 03:40 04/22/22 03:50 04/22/22 04:00 Temperature Temperature Source Pulse Rate 63 65 65 Pulse Rate from SpO2 Sensor Respiratory Rate 12 16 13 Respiratory Depth Blood Pressure Blood Pressure Mean Pulse Oximetry Oxygen Delivery Method Sepsis Recent Fever Within 48 Hours Sepsis New/Unexplained Change in Mental Status Sepsis Action Taken by Nursing 04/22/22 04:10 Temperature Temperature Source Pulse Rate 57 L Pulse Rate from SpO2 Sensor Respiratory Rate 15 Respiratory Depth Blood Pressure Blood Pressure Mean Pulse Oximetry Oxygen Delivery Method Sepsis Recent Fever Within 48 Hours Sepsis New/Unexplained Change in Mental Status Sepsis Action Taken by Nursing VITAL SIGNS - Vital signs and nursing notes were reviewed. Stable and afebrile. GENERAL -52-year-old female appearing her stated age who is in no acute distress. Communicates well with provider and answers questions appropriately. SKIN - Without rashes. HEAD - NC/AT. EYES - PERRL with EOMI bilaterally. Sclera anicteric. EARS - No deformities of external structures noted on gross examination bilaterally. NOSE - Midline and without cyanosis. No epistaxis or purulent drainage noted. MOUTH/OROPHARYNX - Without perioral cyanosis. NECK - Neck with FROM. No nuchal rigidity. LUNGS - Chest wall symmetric without accessory muscle use, intercostals retractions, or central cyanosis. Normal vesicular breath sounds CTA B/L. No wheezes, rales, or rhonchi appreciated. CARDIAC - RRR with S1/S2. No murmur, rubs, or gallops appreciated. ABDOMEN - Abdominal contour normal without pulsations or visible masses. BS normoactive all four quadrants. No tenderness, palpable masses, hepatosplenomegaly, or ascites noted. EXTREMITIES - No clubbing or peripheral cyanosis. +5/5 strength noted in UE/LE bilaterally. NEUROLOGIC - Cranial nerves II through XII grossly intact. PSYCH - A&Ox3 and cooperates fully with examiner. Pt is very pleasant and interacts well with examiner. Course Administered Medications Atenolol (Atenolol 25 Mg Tablet) 25 mg PO DAILY [facility] Stop: 05/22/22 08:59 Last Admin: 04/22/22 09:00 Dose: 25 mg Documented By: SHEFALI Escitalopram Oxalate (Escitalopram Oxalate 20 Mg Tab) 20 mg PO DAILY [facility] Stop: 05/22/22 08:59 Last Admin: 04/22/22 09:00 Dose: 20 mg Documented By: SHEFALI Miscellaneous (Order Awaiting Action: Exemestane 25 Mg Tablet) 1 each N/A QS [facility] Stop: 05/22/22 07:59 Last Admin: 04/22/22 09:01 Dose: Not Given Documented By: SHEFALI Discontinued Medications Ioversol (Optiray 320 500ml) 110 ml IV ONCE ONE Stop: 04/22/22 03:05 Last Admin: 04/22/22 03:04 Dose: 110 ml Documented By: RACHELLE Morphine Sulfate (Morphine Sulfate 2 Mg/Ml Carp) 2 mg IV NOW STA Stop: 04/22/22 00:56 Last Admin: 04/22/22 01:33 Dose: 2 mg Documented By: SHRAVAN Ondansetron HCl (Ondansetron Inj 2 Mg/Ml 2 Ml Vial) 4 mg IV NOW STA Stop: 04/22/22 00:56 Last Admin: 04/22/22 01:33 Dose: 4 mg Documented By: SHRAVAN Medical Decision Making Laboratory Data Result diagrams: 04/22/22 01:45 04/22/22 01:45 Lab Results 04/22/22 04/22/22 04/22/22 Range/Units 01:33 01:33 01:45 WBC 6.17 (4.8-10.8) K/ul RBC 4.56 (3.93-5.22) M/uL Hgb 14.0 (12.0-16.0) g/dl Hct 40.8 (34.1-44.9) % MCV 89.5 (80.0-100.0) fL MCH 30.7 (25.0-34.0) pg MCHC 34.3 (32.0-36.0) g/dL RDW Std Deviation 39.9 (36.4-46.3) fL RDW Coeff of Krystal 12.2 (11.5-14.5) % Plt Count 220 (130-400) K/uL MPV 9.7 (9.4-12.3) fL Immature Gran % (Auto) 0.3 % Neut % (Auto) 74.3 % Lymph % (Auto) 17.7 % Towns % (Auto) 6.3 % Eos % (Auto) 1.1 % Baso % (Auto) 0.3 % Neut # (Auto) 4.58 (1.4-6.5) K/uL Lymph # (Auto) 1.09 L (1.2-3.4) K/uL Towns # (Auto) 0.39 (0.24-0.82) K/uL Eos # (Auto) 0.07 (0-0.50) K/uL Baso # (Auto) 0.02 (0-0.2) K/uL Immature Gran # (Auto) 0.02 (0.00-0.02) K/uL PT (9.0-12.0) Seconds INR (0.9-1.1) APTT (21.0-31.0) Seconds PTT Ratio Sodium (136-145) mmol/L Potassium (3.5-5.1) mmol/L Chloride (98-107) mmol/L Carbon Dioxide (21-32) mmol/L Anion Gap (3-11) BUN (6-23) mg/dl Creatinine (0.6-1.2) mg/dl Est Cr Clr Drug Dosing ml/min Est GFR ( Amer) ml/min Est GFR (Non-Af Amer) ml/min BUN/Creatinine Ratio (10-20) Glucose (70-99(Fasting)) mg/dl Calcium (8.5-10.1) mg/dl Magnesium (1.7-2.4) mg/dl Total Bilirubin (0.2-1.0) mg/dl AST (13-39) U/L ALT (7-52) U/L Alkaline Phosphatase (34-104) U/L Troponin I High Sens (0-14) pg/ml Total Protein (6.0-8.3) gm/dl Albumin (3.4-5.0) gm/dl Globulin (2.5-4.0) gm/dl Albumin/Globulin Ratio (0.9-2) Lipase (11-82) U/L TSH (0.300-4.500) uIu/ml HCG, Qual (Negative) Urine Color Dark Yellow Urine Appearance Cloudy A (Clear) Urine pH 5.5 (4.5-7.5) Ur Specific [place] 1.033 H (1.000-1.030) Urine Protein Trace H (Negative) Urine Glucose (UA) Negative (Negative) Urine Ketones 1+ H (Negative) Urine Blood Negative (Negative) Urine Nitrite Positive A (Negative) Urine Bilirubin 1+ H (Negative) Urine Urobilinogen Positive H (Negative) Ur Leukocyte Esterase Trace H (Negative) Urine WBC (Auto) 1-5 (0-5) /hpf Urine RBC (Auto) 10-30 H (0-4) /hpf U Hyaline Cast (Auto) 5-10 H (0-5) /lpf U Epithel Cells (Auto) 20-30 H (0-5) /lpf Urine Bacteria (Auto) Negative (Negative) Adenovirus (PCR) Not Detected (NotDetected) B. pertussis DNA (PCR) Not Detected (NotDetected) B.parapertussis DNA PCR Not Detected (NotDetected) C. pneumoniae DNA (PCR) Not Detected (NotDetected) Coronavirus OC43 (PCR) Not Detected (NotDetected) Coronavirus HKU1 (PCR) Not Detected (NotDetected) Coronavirus 229E (PCR) Not Detected (NotDetected) SARS-CoV-2 (PCR) Not Detected (NotDetected) Coronavirus NL63 (PCR) Not Detected (NotDetected) Human Metapneumovir PCR Not Detected (NotDetected) Influenza Type A (PCR) Not Detected (NotDetected) Influenza Type B (PCR) Not Detected (NotDetected) M. pneumoniae (PCR) Not Detected (NotDetected) Parainfluenza 1 (PCR) Not Detected (NotDetected) Parainfluenza 2 (PCR) Not Detected (NotDetected) Parainfluenza 3 (PCR) Not Detected (NotDetected) Parainfluenza 4 (PCR) Not Detected (NotDetected) RSV (PCR) Not Detected (NotDetected) Entero/Rhino (PCR) Not Detected (NotDetected) 04/22/22 04/22/22 04/22/22 Range/Units 01:45 01:45 01:45 WBC (4.8-10.8) K/ul RBC (3.93-5.22) M/uL Hgb (12.0-16.0) g/dl Hct (34.1-44.9) % MCV (80.0-100.0) fL MCH (25.0-34.0) pg MCHC (32.0-36.0) g/dL RDW Std Deviation (36.4-46.3) fL RDW Coeff of Krystal (11.5-14.5) % Plt Count (130-400) K/uL MPV (9.4-12.3) fL Immature Gran % (Auto) % Neut % (Auto) % Lymph % (Auto) % Towns % (Auto) % Eos % (Auto) % Baso % (Auto) % Neut # (Auto) (1.4-6.5) K/uL Lymph # (Auto) (1.2-3.4) K/uL Towns # (Auto) (0.24-0.82) K/uL Eos # (Auto) (0-0.50) K/uL Baso # (Auto) (0-0.2) K/uL Immature Gran # (Auto) (0.00-0.02) K/uL PT 10.6 (9.0-12.0) Seconds INR 1.0 (0.9-1.1) APTT 24.7 (21.0-31.0) Seconds PTT Ratio 0.9 Sodium 138 (136-145) mmol/L Potassium 3.7 (3.5-5.1) mmol/L Chloride 105 (98-107) mmol/L Carbon Dioxide 28 (21-32) mmol/L Anion Gap 5 (3-11) BUN 25 H (6-23) mg/dl Creatinine 0.83 (0.6-1.2) mg/dl Est Cr Clr Drug Dosing 91.5 ml/min Est GFR ( Amer) 94.6 ml/min Est GFR (Non-Af Amer) 81.6 ml/min BUN/Creatinine Ratio 30.1 H (10-20) Glucose 114 H (70-99(Fasting)) mg/dl Calcium 8.8 (8.5-10.1) mg/dl Magnesium 1.7 (1.7-2.4) mg/dl Total Bilirubin 0.8 (0.2-1.0) mg/dl AST 101 H (13-39) U/L ALT 52 (7-52) U/L Alkaline Phosphatase 111 H (34-104) U/L Troponin I High Sens 4.0 (0-14) pg/ml Total Protein 6.9 (6.0-8.3) gm/dl Albumin 4.1 (3.4-5.0) gm/dl Globulin 2.8 (2.5-4.0) gm/dl Albumin/Globulin Ratio 1.5 (0.9-2) Lipase 37 (11-82) U/L TSH (0.300-4.500) uIu/ml HCG, Qual Negative (Negative) Urine Color Urine Appearance (Clear) Urine pH (4.5-7.5) Ur Specific [place] (1.000-1.030) Urine Protein (Negative) Urine Glucose (UA) (Negative) Urine Ketones (Negative) Urine Blood (Negative) Urine Nitrite (Negative) Urine Bilirubin (Negative) Urine Urobilinogen (Negative) Ur Leukocyte Esterase (Negative) Urine WBC (Auto) (0-5) /hpf Urine RBC (Auto) (0-4) /hpf U Hyaline Cast (Auto) (0-5) /lpf U Epithel Cells (Auto) (0-5) /lpf Urine Bacteria (Auto) (Negative) Adenovirus (PCR) (NotDetected) B. pertussis DNA (PCR) (NotDetected) B.parapertussis DNA PCR (NotDetected) C. pneumoniae DNA (PCR) (NotDetected) Coronavirus OC43 (PCR) (NotDetected) Coronavirus HKU1 (PCR) (NotDetected) Coronavirus 229E (PCR) (NotDetected) SARS-CoV-2 (PCR) (NotDetected) Coronavirus NL63 (PCR) (NotDetected) Human Metapneumovir PCR (NotDetected) Influenza Type A (PCR) (NotDetected) Influenza Type B (PCR) (NotDetected) M. pneumoniae (PCR) (NotDetected) Parainfluenza 1 (PCR) (NotDetected) Parainfluenza 2 (PCR) (NotDetected) Parainfluenza 3 (PCR) (NotDetected) Parainfluenza 4 (PCR) (NotDetected) RSV (PCR) (NotDetected) Entero/Rhino (PCR) (NotDetected) 04/22/22 Range/Units 01:45 WBC (4.8-10.8) K/ul RBC (3.93-5.22) M/uL Hgb (12.0-16.0) g/dl Hct (34.1-44.9) % MCV (80.0-100.0) fL MCH (25.0-34.0) pg MCHC (32.0-36.0) g/dL RDW Std Deviation (36.4-46.3) fL RDW Coeff of Krystal (11.5-14.5) % Plt Count (130-400) K/uL MPV (9.4-12.3) fL Immature Gran % (Auto) % Neut % (Auto) % Lymph % (Auto) % Towns % (Auto) % Eos % (Auto) % Baso % (Auto) % Neut # (Auto) (1.4-6.5) K/uL Lymph # (Auto) (1.2-3.4) K/uL Towns # (Auto) (0.24-0.82) K/uL Eos # (Auto) (0-0.50) K/uL Baso # (Auto) (0-0.2) K/uL Immature Gran # (Auto) (0.00-0.02) K/uL PT (9.0-12.0) Seconds INR (0.9-1.1) APTT (21.0-31.0) Seconds PTT Ratio Sodium (136-145) mmol/L Potassium (3.5-5.1) mmol/L Chloride (98-107) mmol/L Carbon Dioxide (21-32) mmol/L Anion Gap (3-11) BUN (6-23) mg/dl Creatinine (0.6-1.2) mg/dl Est Cr Clr Drug Dosing ml/min Est GFR ( Amer) ml/min Est GFR (Non-Af Amer) ml/min BUN/Creatinine Ratio (10-20) Glucose (70-99(Fasting)) mg/dl Calcium (8.5-10.1) mg/dl Magnesium (1.7-2.4) mg/dl Total Bilirubin (0.2-1.0) mg/dl AST (13-39) U/L ALT (7-52) U/L Alkaline Phosphatase (34-104) U/L Troponin I High Sens (0-14) pg/ml Total Protein (6.0-8.3) gm/dl Albumin (3.4-5.0) gm/dl Globulin (2.5-4.0) gm/dl Albumin/Globulin Ratio (0.9-2) Lipase (11-82) U/L TSH 2.355 (0.300-4.500) uIu/ml HCG, Qual (Negative) Urine Color Urine Appearance (Clear) Urine pH (4.5-7.5) Ur Specific [place] (1.000-1.030) Urine Protein (Negative) Urine Glucose (UA) (Negative) Urine Ketones (Negative) Urine Blood (Negative) Urine Nitrite (Negative) Urine Bilirubin (Negative) Urine Urobilinogen (Negative) Ur Leukocyte Esterase (Negative) Urine WBC (Auto) (0-5) /hpf Urine RBC (Auto) (0-4) /hpf U Hyaline Cast (Auto) (0-5) /lpf U Epithel Cells (Auto) (0-5) /lpf Urine Bacteria (Auto) (Negative) Adenovirus (PCR) (NotDetected) B. pertussis DNA (PCR) (NotDetected) B.parapertussis DNA PCR (NotDetected) C. pneumoniae DNA (PCR) (NotDetected) Coronavirus OC43 (PCR) (NotDetected) Coronavirus HKU1 (PCR) (NotDetected) Coronavirus 229E (PCR) (NotDetected) SARS-CoV-2 (PCR) (NotDetected) Coronavirus NL63 (PCR) (NotDetected) Human Metapneumovir PCR (NotDetected) Influenza Type A (PCR) (NotDetected) Influenza Type B (PCR) (NotDetected) M. pneumoniae (PCR) (NotDetected) Parainfluenza 1 (PCR) (NotDetected) Parainfluenza 2 (PCR) (NotDetected) Parainfluenza 3 (PCR) (NotDetected) Parainfluenza 4 (PCR) (NotDetected) RSV (PCR) (NotDetected) Entero/Rhino (PCR) (NotDetected) Imaging Data Radiologist's Impression: Abdomen/Pelvis CT 04/22/22 00:55 CT OF THE ABDOMEN AND PELVIS WITH CONTRAST CLINICAL HISTORY: Abdominal pain. COMPARISON STUDY: Pelvic ultrasound August 12, 2015. TECHNIQUE: Following IV administration of 110 mL of Optiray, axial images of the abdomen and pelvis were obtained from the lung bases to the proximal femurs. Images were reviewed in the axial, sagittal, and coronal planes. IV contrast was administered without complication. Automated exposure control was utilized for the study. A dose lowering technique was utilized adhering to the principles of ALARA. FINDINGS: There are no hepatic lesions. Moderate biliary ductal dilatation is noted status post cholecystectomy. Postoperative findings suggestive of gastric sleeve resection are noted. There is no evidence for a bowel obstruction. A 1.5 cm hypodense splenic lesion is likely benign. This was present on earlier chest CT of February 08, 2020. Adrenal glands, right kidney and pancreas are unremarkable. There is no hydronephrosis. A 2 mm calculus within the lower pole of the left kidney is present. There are no ureteral calculi. There is no evidence for a bowel obstruction. The appendix is normal. The caliber and wall thickness of small and large bowel are normal. There is no lymphadenopathy or ascites. Major vasculature is patent. IMPRESSION: 1. Moderate biliary ductal dilatation. This is nonspecific and may be related to prior cholecystectomy however correlation with liver function tests is recommended. 2. Status post gastric sleeve resection. 3. No bowel obstruction. No bowel wall thickening. Normal appendix. 4. 2 mm left renal calculus. No ureteral calculi or hydronephrosis. ACT 112: Negative or not required by law. Electronically signed by: Deangelo Mcgowan M.D. 04/22/2022 9:04 AM Chest CTA 04/22/22 00:55 CT ANGIOGRAPHY OF THE CHEST, PULMONARY EMBOLUS PROTOCOL CLINICAL HISTORY: Abdominal and chest pain. COMPARISON STUDY: Chest CT January 29, 2020 and chest radiograph April 22, 2022. TECHNIQUE: Following IV administration of 110 mL of Optiray, helical axial images of the chest were obtained utilizing the pulmonary embolus protocol. Maximal intensity projections and sagittal and coronal reformats were viewed on an independent 3D workstation. IV contrast was administered without complication. Automated exposure control was utilized for the study. A dose lowering technique was utilized adhering to the principles of ALARA. CT DOSE: 1063.12 mGy.cm FINDINGS: No pulmonary emboli are identified. There is no thoracic aortic dissection. The size of the heart is normal. There is no thoracic lymphadenopathy. No pneumothorax or pleural effusion is noted. There is no consolidation to suggest pneumonia. No fractures within the bony thorax are noted. There are postoperative findings within the left breast. Intrahepatic biliary ductal dilatation has mildly increased since CT of January 29, 2020. Postoperative findings within the stomach are noted. A 1.7 cm hypodense splenic lesion is noted. This has slightly increased in size since prior CT but is likely benign. IMPRESSION: 1. No pulmonary emboli identified. 2. No acute intrathoracic findings. 3. Mild increase in intrahepatic biliary ductal dilatation since chest CT January 29, 2020. This may be related to prior cholecystectomy however correlation with liver function tests is recommended. ACT 112: Negative or not required by law. Electronically signed by: Deangelo Mcgowan M.D. 04/22/2022 8:56 AM CTA CHEST: No evidence of PE. Lungs are clear. No pleural effusions. No adenopathy. Heart size is normal. Aorta is unremarkable. Radiologist: Michael Miller MD Study ready at 03:12 and initial results transmitted at 03:14 CT ABDOMEN & PELVIS With Contrast: The patient is status post sleeve gastrectomy and cholecystectomy. No acute pathology is identified in the abdomen or pelvis. Radiologist: Michael Miller MD Study ready at 03:16 and initial results transmitted at 03:18 MDM Narrative Patient was seen and evaluated as above in room A04. Review was performed of nursing notes and vital signs. I did review pertinent previous visits and patient history. After obtaining a thorough history and physical examination the above work up was performed. Patient presents to us today with lower chest/upper abdominal pain. She appears tired but overall nontoxic on examination. Her vital signs are stable. Options of care were discussed with the patient. IV access was established. Labs were drawn. EKG was obtained. This reveals normal sinus rhythm at a rate of 60 bpm. QTc 476. QRS 90. No ST elevation. Patient was ordered IV morphine for pain. IV Zofran was also ordered. Labs reveal no leukocytosis or concerning anemia. Mild transaminitis, otherwise no emergent metabolic disturbance. BUN mildly elevated at 25. Troponin is within normal range. Urinalysis reveals trace protein, 1+ ketones, positive nitrites and urobilinogen and 1+ bilirubin. Trace leukocytes and only 1-5 white blood cells. No bacteria. There are a fair amount of epithelial cells as well as red blood cells present. The bio fire panel was found to be negative. A CT scan was seen to the patient's chest to evaluate for PE and was negative. A CT scan was obtained of the abdomen/pelvis and was negative for emergent process. At this time given the symptoms that she describes proceeding her visit here today, I do find it reasonable to proceed with further evaluation/management in the inpatient setting. Case discussed with the hospitalist service. Please refer to further documentation regarding her stay. An order was placed for continuous cardiac monitoring. The monitor shows a rate of 60 with sinus rhythm. GCS: 15 In the evaluation and treatment of this patient the following differential diagnoses were entertained: CA, PE, pericarditis, costochondritis, dissection, cholangitis, dissection, among others. Impression & Plan Chest pain, Transaminitis Discharge Plan Visit Data Chief Complaint: Abdominal Pain ED Provider: Cassandra Rasheed ED Midlevel Provider: Sajan Vo Discharge Problem: Chest pain, Transaminitis Patient Disposition: Admitted As Inpatient Condition: Good Discharge Instructions Interventions: ED Discharge Assessment Last Done: 04/22/22 06:42
[2022-04-22 02:00] LABS: Appearance Urine Cloudy (Clear); Bacteria Urine Automated Negative (Negative); Blood Urine Negative (Negative); Color Urine Dark Yellow; Epithelial Cell Urine Auto 20-30 /lpf (0-5); Glucose Urine UA Negative (Negative); Ketones Urine 1+ (Negative); Leukocyte Esterase Urine Trace (Negative); Nitrite Urine Positive (Negative); Protein Urine Trace (Negative); Specific Gravity Urine 1.033 (1.000-1.030); Urobilinogen Urine Positive (Negative); pH Urine 5.5 (4.5-7.5)
[2022-04-22 02:05] LABS: Bilirubin Urine 1+ (Negative)
[2022-04-22 02:13] LABS: Basophils # (auto) 0.02 K/uL (0-0.2); Basophils % (auto) 0.3 %; Eosinophils # (auto) 0.07 K/uL (0-0.50); Eosinophils % (auto) 1.1 %; Hematocrit (blood only) 40.8 % (34.1-44.9); Immature Granulocytes # (auto) 0.02 K/uL (0.00-0.02); Immature Granulocytes % (auto) 0.3 %; Lymphocytes # (auto) 1.09 K/uL (1.2-3.4); Lymphocytes % (auto) 17.7 %; Mean Corpuscular Hemoglobin 30.7 pg (25.0-34.0); Mean Corpuscular Hgb Conc 34.3 g/dL (32.0-36.0); Mean Corpuscular Volume 89.5 fL (80.0-100.0); Mean Platelet Volume 9.7 fL (9.4-12.3); Monocytes # (auto) 0.39 K/uL (0.24-0.82); Monocytes % (auto) 6.3 %; Neutrophils # (auto) 4.58 K/uL (1.4-6.5); Neutrophils % (auto) 74.3 %; Platelet Count 220 K/uL (130-400); RDW Coefficient of Variation 12.2 % (11.5-14.5); RDW Standard Deviation 39.9 fL (36.4-46.3); Red Blood Count 4.56 M/uL (3.93-5.22); White Blood Count 6.17 K/ul (4.8-10.8)
[2022-04-22 02:27] LABS: Pregnancy Test, Serum Negative (Negative)
[2022-04-22 02:28] LABS: Partial Thromboplastin Ratio 0.9; Partial Thromboplastin Time 24.7 Seconds (21.0-31.0); Prothrombin Time 10.6 Seconds (9.0-12.0)
[2022-04-22 02:38] LABS: Albumin Globulin Ratio 1.5 (0.9-2); Albumin Level 4.1 gm/dl (3.4-5.0); BUN Creatinine Ratio 30.1 (10-20); Bilirubin,Total 0.8 mg/dl (0.2-1.0); Calcium 8.8 mg/dl (8.5-10.1); Creatinine Clr Calc Pharmacy 91.5 ml/min; Est GFR (African American) 94.6 ml/min; Est GFR (Non-African American) 81.6 ml/min; Globulin 2.8 gm/dl (2.5-4.0); Magnesium 1.7 mg/dl (1.7-2.4); Potassium 3.7 mmol/L (3.5-5.1); Total Protein 6.9 gm/dl (6.0-8.3)
[2022-04-22 02:41] LABS: Adenovirus PCR Not Detected (NotDetected); Bordetella parapertussis PCR Not Detected (NotDetected); Bordetella pertussis PCR Not Detected (NotDetected); Chlamydia pneumoniae PCR Not Detected (NotDetected); Coronavirus 229E PCR Not Detected (NotDetected); Coronavirus CoV-2 (COVID19)PCR Not Detected (NotDetected); Coronavirus HKU1 PCR Not Detected (NotDetected); Coronavirus NL63 PCR Not Detected (NotDetected); Coronavirus OC43PCR Not Detected (NotDetected); Human Metapneumovirus PCR Not Detected (NotDetected); Influenza A PCR Not Detected (NotDetected); Influenza B PCR Not Detected (NotDetected); Mycoplasma pneumoniae PCR Not Detected (NotDetected); Parainfluenza Virus 1 PCR Not Detected (NotDetected); Parainfluenza Virus 2 PCR Not Detected (NotDetected); Parainfluenza Virus 3 PCR Not Detected (NotDetected); Parainfluenza Virus 4 PCR Not Detected (NotDetected); Respiratory Syncytial VirusPCR Not Detected (NotDetected); Rhinovirus/Enterovirus PCR Not Detected (NotDetected)
[2022-04-22] MEDS ORDERED: OPTIRAY 320 500ml IV ONE (03:04)
--- NOTE | 2022-04-22 03:55 | History & Physical Report ---
Date of Service April 22, 2022 Assessment & Plan (1) Chest pain: Plan: Given patient's obesity, HTN, and mild smoking history, her description of acute-onset substernal chest pressure is somewhat concerning for ACS. However hsTroponin is WNL and EKG is without changes. Additionally patient has resolving GI illness which may also be contributing to her pain. - chest pressure is mostly resolved after Morphine 2mg IV x1 - currently normotensive and not hypoxic - admit to telemetry for observation - check Troponin again - continue with PRN Tylenol/Morphine for pain - stress echo ordered although likely will not be possible to get done before Saturday, and patient is aware of this - she would like to stay for at least several hours to ensure that her pain resolves - check A1c/lipids for risk stratification (2) Transaminitis: Plan: AST 101, previously WNL earlier this year. S/p cholecystectomy. ?NAFLD/DIANA - check liver US - trend LFTs either here or as outpatient, depending on length of stay (3) Essential (primary) hypertension: Plan: Normotensive thus far. Continue home Atenolol. (4) History of breast cancer: Plan: s/p partial mastectomy/RTx/chemo in 2014, on Exemastane - continue. (5) Depression: Plan: Continue home Lexapro Plan FEN/GI: NPO DVT Prophylaxis: SCDs Code Status: full code Disposition: med/tele History of Present Illness Chief Complaint: abdominal pain Primary Care Provider: Dari Bowman DO Tata Lynch is a 52yo female with PMHx significant for obesity (BMI 37.3), HTN, h/o laparoscopic sleeve gastrectomy in 2019, venous insufficiency and h/o breast cancer (s/p partial mastectomy/RTx/chemo in 2014, on Exemastane) who presented to [facility] ED on 04/22 for acute-onset substernal chest and epigastric abdominal pain that started at 20:00 on 04/21 while patient was resting in bed, with associated diaphoresis and nausea. Of note patient has been dealing with GI bug for last several days with associated N/V, diarrhea, and decreased appetite (but adequate fluid intake) which had largely resolved on 04/21, several hours before pain started. The pain was 10/10 severity and was intermittent until she came to the ED, lasting for 10 minutes at a time and resolving before intervention. Patient denies having this pain ever before. Does admit to having several panic attacks in her life, most recently 10 years ago, but reports that this chest tightness/pressure is nothing like those events. Denies symptoms of GERD. Denies RUQ/epigastric pain after eating, and is s/p cholecystectomy - largely having no issues with diet since her gastric sleeve surgery several years ago. Patient denies family history of IA/heart disease. She has a 1 pack year smoking history and quit ~8 years ago. Denies alcohol use or drug use. Denies fever/chills, runny nose, cough, SOB, lower abdominal pain, dysuria or rash. She is proficient in ADLs/iADLs and is able to be moderately physically active. In the ED the patient was afebrile and hemodynamically stable on room air. Labs significant for AST 101 (up from baseline); CBC/CMP/Mg/TSH otherwise WNL. UA cloudy and +nitrite/trace LE/20-30 epithelial cells and negative bacteria. Respiratory BioFire pantoja-negative. CTA chest and CT A/P both without acute pathology. hsTroponin 4.0. EKG NSR without ST/T abnormalities. In ED patient received Morphine 2mg IV x1 and Zofran 4mg IV x1. Allergies Allergy/AdvReac Type Severity Reaction Status Date / Time adhesive Allergy Intermediate Itchy rash Verified 04/22/22 01:19 to Tape/Steri Strips/Band Aids Home Medications Medication Instructions Recorded Confirmed Type exemestane 25 mg tablet 25 mg PO DAILY #30 tabs 03/26/19 04/22/22 Rx cholecalciferol (vitamin D3) 25 0 mcg PO DAILY 03/09/20 04/22/22 History mcg (1,000 unit) tablet (Vitamin D3) multivitamin with iron 1 tab PO DAILY 03/09/20 04/22/22 History escitalopram oxalate 20 mg tablet 20 mg PO DAILY #30 tabs 10/30/21 04/22/22 Rx atenolol 25 mg tablet 25 mg PO DAILY #90 tabs 11/22/21 04/22/22 Rx calcium carbonate 600 mg calcium 0 mg PO DAILY 04/22/22 04/22/22 History (1,500 mg) tablet (Calcium) Past Med/Surg History Medical History Acute viral pericarditis Arthritis BRCA negative Breast cancer (11/03/14) "Left breast, invasive ductal carcinoma, grade 2, ER/AL positive, Her2 negative, [id number], stage IA TREATMENT: lumpectomy and SLN. 11/19/14 Oncotype DX score 20 Status post post completion of systemic chemotherapy Started with Taxotere and Cytoxan, allergic reaction to Taxotere Completed chemotherapy with Adriamycin and Cytoxan BRCA1 and BRCA2 negative Status post completion of radiation therapy 06/13/2014 received 6640 cGy" On 07/12/15 15:58 Latoya Pathak wrote "Left breast, invasive ductal carcinoma, grade 2, ER/AL positive, Her2 negative, [id number], stage IA TREATMENT: lumpectomy and SLN. 11/19/14 Oncotype DX score 20 Status post post completion of systemic chemotherapy Started with Taxotere and Cytoxan, allergic reaction to Taxotere Completed chemotherapy with Adriamycin and Cytoxan BRCA1 and BRCA2 negative Status post completion of radiation therapy 06/13/2014 received 6640 cGy" On 06/20/15 11:10 Latoya Pathak wrote "Left breast, invasive ductal carcinoma, grade 2, ER/AL positive, Her2 negative, [id number], stage IA TREATMENT: lumpectomy and SLN. 11/19/14 Oncotype DX score 20 Status post post completion of systemic chemotherapy BRCA1 and BRCA2 negative Status post completion of radiation therapy 06/13/2014 received 6640 cGy" On 12/08/14 13:15 Mikayla Correa wrote "Left breast, invasive ductal carcinoma, grade 2, ER/AL positive, Her2 negative, [id number], stage IA TREATMENT: lumpectomy and SLN. Oncotype DX is pending." Essential (primary) hypertension History of breast cancer History of chemotherapy Pericardial effusion Pleural effusion Venous insufficiency (chronic) (peripheral) Surgical History H/O section x3 1992,2008,2010 History of arthroscopy of knee left knee 1985 History of cholecystectomy History of lymph node biopsy *SENTINEL* S/P laparoscopic sleeve gastrectomy (12/16/19) 2020 Status post partial mastectomy of left breast (11/19/14) 2014 Family History Son Autism Sister Diabetes Gallbladder disease Grandmother (Maternal) Diabetes Father Urinary bladder cancer Hypertension Mother Hypertension Stroke Denies family history of Ovarian cancer Prostate cancer Myocardial infarction Breast cancer Lung cancer Colorectal cancer Social History Smoking Status: Former smoker Tobacco Type: Cigarettes Age Quit Using Tobacco: 45; packs per day: 0.5; Second Hand Exposure: No; Hx Alcohol Use: No Hx Substance Use: No Preferred Language: Polish Communication Ability: Effective Visual Impairment: No Limitations Hearing Ability: Normal Head Esthetician Required: No Beliefs That Will Affect Care: None marital status: Current Living Situation: Spouse Current Living Situation Comment: with spouse and 2 children current occupational status: employed current occupation: [employer] at [employer] How many Children do You have: 3 Feels Safe at Home: Yes Childhood Exposure to Second-Hand Smoke: No Diet Comment: regular caffeine: Yes during the past year weight has: decreased > 10 lbs Dental Care, Regularly: Yes Physical Activity Frequency: Daily Seatbelt Use: always Sunscreen Use: Yes Assistive Devices: Glasses Review of Systems Review of Systems: All systems reviewed & are unremarkable except as noted in HPI & below Physical Exam Physical Exam: General: A&Ox3. NAD. Cooperative. HEENT: Atraumatic, normocephalic. Pulm: CTAB A&P. -wheezes, -rales, -rhonchi. Symmetrical chest rise. No increase work of breathing. No respiratory distress. Cardiac: RRR, -mrg. Radial pulses intact and symmetrical. No LE edema Chest: no increase in pain to palpation of chest wall Abdominal: soft, non-tender, non-distended, BS x 4 Skin: warm, dry, no rash Results & Data Results & Data ([facility]) Vital Signs (Past 12 Hours) Vital Signs Temp Pulse Resp BP Pulse Ox O2 Del Method 04/22/22 03:40 63 12 04/22/22 03:30 61 14 04/22/22 03:20 64 14 04/22/22 03:10 68 16 04/22/22 03:04 19 04/22/22 02:50 83 04/22/22 02:40 59 L 16 98 04/22/22 02:30 59 L 14 98 04/22/22 02:20 57 L 10 L 100 04/22/22 02:10 62 19 100 04/22/22 02:00 55 L 16 04/22/22 02:00 102/63 04/22/22 01:50 61 10 L 100 04/22/22 01:40 57 L 15 100 04/22/22 01:39 61 18 100 04/22/22 01:39 155/90 H 04/22/22 01:32 100 04/22/22 01:00 66 15 99 04/22/22 00:50 62 16 99 04/22/22 00:47 64 13 98 04/22/22 01:01 99 Room Air 04/22/22 00:49 36.9 C 63 16 126/75 99 Room Air Supervising Physician Co-Signing Physician Notes Patient seen and examined, chart reviewed, case discussed with Dr. Quinonez at time of admission and I agree with the assessment and plan as above. In brief, patient is a 52yo female with obesity, h/o sleeve gastrectomy in 2019, HTN and tobacco use with substernal chest pain. Troponin is unremarkable EKG with no acute ischemic changes On exam she is sleeping comfortably, NAD Skin - intact HEENT - MMM, Neck supple Heart - +S1/S2, regular, no m/r/g Lungs - CTA Abd - soft, NT/ND Ext - warm, well perfused, no clubbing, cyanosis or edema Labs and images reviewed Assessment/plan - 52yo female with history of HTN, obesity s/p sleeve gastrectomy in 2019 presenting with substernal chest discomfort, now relieved. Doubt cardiac etiology -Telemetry monitoring -Repeat troponin -Patient should consider outpatient stress testing -Remainder as above Resident Activity Tracking Resident Involvement: Resident Care Provided Care Provided: Adult [facility]
[2022-04-22 05:01] LABS: Chol HDL Ratio 2.6 (0-5)
[2022-04-22] MEDS ORDERED: MoRPHine SULFATE 2 MG/ML CARP IV PRN (06:42)
[2022-04-22] MEDS ORDERED: ONDANSETRON INJ 2 MG/ML 2 ML VIAL IV PRN (06:42)
[2022-04-22] MEDS ORDERED: NITROGLYCERIN SL 0.4 MG/TAB TAB SL PRN (06:42)
[2022-04-22] MEDS ORDERED: ACETAMINOPHEN 500 MG TAB PO PRN (06:42)
--- NOTE | 2022-04-22 07:40 | Ultrasound Report ---
ABDOMINAL ULTRASOUND, RIGHT UPPER QUADRANT HISTORY: transaminitis, epigastric pain. COMPARISON: Abdomen and pelvis CT 04/22/2022. FINDINGS: Pancreas: The pancreatic head is obscured by overlying bowel gas. The remaining portions of the pancr eas are within normal limits. Liver: No hepatic masses. Mild intrahepatic bile duct dilatation. Gallbladder: The gallbladder is surgically absent. CBD: 1.5 cm. Right kidney: No hydronephrosis. IMPRESSION: 1. Prior cholecystectomy. 2. Mild intrahepatic bile duct dilatation. The common bile but measures 15 mm in diameter. Recommend correlation with LFTs. ACT 112: Negative or not required by law. Electronically signed by: Morlaes Patel M.D. 04/22/2022 7:39 AM
--- NOTE | 2022-04-22 08:57 | CT Scan Report ---
CT ANGIOGRAPHY OF THE CHEST, PULMONARY EMBOLUS PROTOCOL CLINICAL HISTORY: Abdominal and chest pain. COMPARISON STUDY: Chest CT January 29, 2020 and chest radiograph April 22, 2022. TECHNIQUE: Following IV administration of 110 mL of Optiray, helical axial images of the chest were o btained utilizing the pulmonary embolus protocol. Maximal intensity projections and sagittal and cor onal reformats were viewed on an independent 3D workstation. IV contrast was administered without co mplication. Automated exposure control was utilized for the study. A dose lowering technique was ut ilized adhering to the principles of ALARA. CT DOSE: 1063.12 mGy.cm FINDINGS: No pulmonary emboli are identified. There is no thoracic aortic dissection. The size of th e heart is normal. There is no thoracic lymphadenopathy. No pneumothorax or pleural effusion is noted . There is no consolidation to suggest pneumonia. No fractures within the bony thorax are noted. Ther e are postoperative findings within the left breast. Intrahepatic biliary ductal dilatation has mildl y increased since CT of January 29, 2020. Postoperative findings within the stomach are noted. A 1.7 c m hypodense splenic lesion is noted. This has slightly increased in size since prior CT but is likely benign. IMPRESSION: 1. No pulmonary emboli identified. 2. No acute intrathoracic findings. 3. Mild increase in intrahepatic biliary ductal dilatation since chest CT January 29, 2020. This may b e related to prior cholecystectomy however correlation with liver function tests is recommended. ACT 112: Negative or not required by law. Electronically signed by: Deangelo Mcgowan M.D. 04/22/2022 8:56 AM
[2022-04-22] MEDS ORDERED: ATENOLOL 25 MG TABLET PO SCH (09:00)
[2022-04-22] MEDS ORDERED: ESCITALOPRAM OXALATE 20 MG TAB PO SCH (09:00)
--- NOTE | 2022-04-22 09:05 | CT Scan Report ---
CT OF THE ABDOMEN AND PELVIS WITH CONTRAST CLINICAL HISTORY: Abdominal pain. COMPARISON STUDY: Pelvic ultrasound August 12, 2015. TECHNIQUE: Following IV administration of 110 mL of Optiray, axial images of the abdomen and pelvis w ere obtained from the lung bases to the proximal femurs. Images were reviewed in the axial, sagittal, and coronal planes. IV contrast was administered without complication. Automated exposure control w as utilized for the study. A dose lowering technique was utilized adhering to the principles of VELVET Hernandez. FINDINGS: There are no hepatic lesions. Moderate biliary ductal dilatation is noted status post jeremías cystectomy. Postoperative findings suggestive of gastric sleeve resection are noted. There is no evid ence for a bowel obstruction. A 1.5 cm hypodense splenic lesion is likely benign. This was present on earlier chest CT of February 08, 2020. Adrenal glands, right kidney and pancreas are unremarkable. Th ere is no hydronephrosis. A 2 mm calculus within the lower pole of the left kidney is present. There are no ureteral calculi. There is no evidence for a bowel obstruction. The appendix is normal. The ca liber and wall thickness of small and large bowel are normal. There is no lymphadenopathy or ascites. Major vasculature is patent. IMPRESSION: 1. Moderate biliary ductal dilatation. This is nonspecific and may be related to prior cholecystectom y however correlation with liver function tests is recommended. 2. Status post gastric sleeve resection. 3. No bowel obstruction. No bowel wall thickening. Normal appendix. 4. 2 mm left renal calculus. No ureteral calculi or hydronephrosis. ACT 112: Negative or not required by law. Electronically signed by: Deangelo Mcgowan M.D. 04/22/2022 9:04 AM
--- NOTE | 2022-04-22 10:04 | Electrocardiogram Report ---
Test Reason : Blood Pressure : / mmHG Vent. Rate : 060 BPM Atrial Rate : 060 BPM P-R Int : 164 ms QRS Dur : 090 ms QT Int : 440 ms P-R-T Axes : 017 -02 008 degrees QTc Int : 440 ms Normal sinus rhythm Nonspecific T wave abnormality Abnormal ECG When compared with ECG of 09-MAR-2020 16:59, Vent. rate has decreased BY 31 BPM T wave inversion no longer evident in Inferior leads Nonspecific T wave abnormality, improved in Lateral leads Confirmed by Higinio Pope ([id number]) on 04/22/2022 10:04:22 AM Referred By: REFERRED SELF Confirmed By:Jerman Pope
--- NOTE | 2022-04-22 10:50 | Cardiology Consultation ---
Date of Consultation April 22, 2022 Assessment & Plan (1) Chest pain: Plan 1. Chest pain: I do not think this was likely to be cardiac in etiology. While she did describe symptoms similar to her pericarditis couple of years ago, I think this is more likely gastrointestinal. She had additional symptoms suggestive of a gastrointestinal illness as well. Despite severe and extensive symptoms is no elevation in her cardiac biomarkers. EKG is unremarkable. Echocardiogram is also normal. I do not believe she requires any additional cardiac testing. I believe she is safe for discharge from a cardiac standpoint. History of Present Illness Reason for Consultation: Chest pain Requesting Physician: Mattie Attending Physician: Nas Phelps MD History of Present Illness The patient is a 52-year-old woman with a history of mild pericarditis who presented to the emergency room for symptoms epigastric and chest discomfort. Patient has been struggling with some gastrointestinal symptoms for few days leading up to her admission. This is characterized primarily by nausea and anorexia. She denies significant vomiting but did have some diarrhea as well. No subjective fevers or chills. Some other family members with similar symptoms. Throughout a good portion of yesterday she had waxing waning symptoms epigastric and lower chest discomfort. She thought that the symptoms were similar to the pericarditis she had a couple of years ago. However, there did not appear to be any change in her symptoms with changes in position which was characteristic of her previous episode. She did have some pleuritic type symptoms. Her symptoms became notably more severe and associated with diaphoresis later in the evening. Based on the severity, persistent nature of her symptoms and associated diaphoresis she presented to the emergency room for evaluation. Her symptoms gradually resolved and did improve after administration of narcotics. She has not had any symptoms in several hours. She claims been otherwise active individual. She does not exercise regularly, but her job does involve extensive walking and carrying items up and down stairs. She has not report any associated symptoms such as chest pain or dyspnea. No orthopnea. No sense of palpitation. No dizziness or lightheadedness. No history of syncope. No lower extremity edema. Allergies Allergy/AdvReac Type Severity Reaction Status Date / Time adhesive Allergy Intermediate Itchy rash Verified 04/22/22 01:19 to Tape/Steri Strips/Band Aids Home Medications Medication Instructions Recorded Confirmed Type exemestane 25 mg tablet 25 mg PO DAILY #30 tabs 03/26/19 04/22/22 Rx cholecalciferol (vitamin D3) 25 0 mcg PO DAILY 03/09/20 04/22/22 History mcg (1,000 unit) tablet (Vitamin D3) multivitamin with iron 1 tab PO DAILY 03/09/20 04/22/22 History escitalopram oxalate 20 mg tablet 20 mg PO DAILY #30 tabs 10/30/21 04/22/22 Rx atenolol 25 mg tablet 25 mg PO DAILY #90 tabs 11/22/21 04/22/22 Rx calcium carbonate 600 mg calcium 0 mg PO DAILY 04/22/22 04/22/22 History (1,500 mg) tablet (Calcium) Patient History Medical History Acute viral pericarditis Arthritis BRCA negative Breast cancer (11/03/14) "Left breast, invasive ductal carcinoma, grade 2, ER/OK positive, Her2 negative, [id number], stage IA TREATMENT: lumpectomy and SLN. 11/19/14 Oncotype DX score 20 Status post post completion of systemic chemotherapy Started with Taxotere and Cytoxan, allergic reaction to Taxotere Completed chemotherapy with Adriamycin and Cytoxan BRCA1 and BRCA2 negative Status post completion of radiation therapy 06/13/2014 received 6640 cGy" On 07/12/15 15:58 Latoya Pathak wrote "Left breast, invasive ductal carcinoma, grade 2, ER/OK positive, Her2 negative, [id number], stage IA TREATMENT: lumpectomy and SLN. 11/19/14 Oncotype DX score 20 Status post post completion of systemic chemotherapy Started with Taxotere and Cytoxan, allergic reaction to Taxotere Completed chemotherapy with Adriamycin and Cytoxan BRCA1 and BRCA2 negative Status post completion of radiation therapy 06/13/2014 received 6640 cGy" On 06/20/15 11:10 Latoya Pathak wrote "Left breast, invasive ductal carcinoma, grade 2, ER/OK positive, Her2 negative, [id number], stage IA TREATMENT: lumpectomy and SLN. 11/19/14 Oncotype DX score 20 Status post post completion of systemic chemotherapy BRCA1 and BRCA2 negative Status post completion of radiation therapy 06/13/2014 received 6640 cGy" On 12/08/14 13:15 Mikayla Correa wrote "Left breast, invasive ductal carcinoma, grade 2, ER/OK positive, Her2 negative, [id number], stage IA TREATMENT: lumpectomy and SLN. Oncotype DX is pending." Essential (primary) hypertension History of breast cancer History of chemotherapy Pericardial effusion Pleural effusion Venous insufficiency (chronic) (peripheral) Surgical History H/O section x3 1992,2008,2010 History of arthroscopy of knee left knee 1984 History of cholecystectomy History of lymph node biopsy *[facility]* S/P laparoscopic sleeve gastrectomy (12/16/19) 2019 Status post partial mastectomy of left breast (11/19/14) 2014 Family History Son Autism Sister Diabetes Gallbladder disease Grandmother (Maternal) Diabetes Father Urinary bladder cancer Hypertension Mother Hypertension Stroke Denies family history of Ovarian cancer Prostate cancer Myocardial infarction Breast cancer Lung cancer Colorectal cancer Social History Smoking Status: Former smoker Tobacco Type: Cigarettes Age Quit Using Tobacco: 45; packs per day: 0.5; Second Hand Exposure: No; Hx Alcohol Use: No Hx Substance Use: No Preferred Language: Welsh Communication Ability: Effective Visual Impairment: No Limitations Hearing Ability: Normal Trader Required: No Beliefs That Will Affect Care: None marital status: Current Living Situation: Spouse Current Living Situation Comment: with spouse and 2 children current occupational status: employed 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 Mood affect appear normal. She answered all questions appropriately. HEENT: Sclerae are anicteric. Pupils are equal and reactive to light and accommodation. Extraocular movements were intact. Neuro: Cranial nerves intact Lungs: Lungs are clear to auscultation bilaterally. There are no rales wheezes or rhonchi. She has normal respiratory effort without use of accessory muscles. There is normal pulmonary excursion. Cardiac: The rhythm was regular. S1 and S2 were normal. There are no murmurs on examination. The PMI was not markedly displaced on palpation. Abdomen: The abdomen was soft and nontender. Extremities: Patient has bilateral radial pulses that are equal in intensity. There is no evidence cyanosis or clubbing. There was no evidence of significant peripheral edema bilaterally. Skin: There are no rashes noted on examination today. Results & Data ([facility]) Vital Signs (Past 12 Hours) Vital Signs Temp Pulse Pulse Resp BP BP Pulse Ox 04/22/22 08:08 36.6 C 54 L 19 127/82 98 04/22/22 07:45 52 L 12 96 04/22/22 07:30 52 L 13 96 04/22/22 07:30 112/69 04/22/22 07:15 59 L 12 95 04/22/22 07:00 52 L 14 95 04/22/22 07:00 110/71 04/22/22 06:45 52 L 12 95 04/22/22 06:40 53 L 12 94 04/22/22 06:30 53 L 14 95 04/22/22 06:30 110/67 04/22/22 06:20 54 L 13 95 04/22/22 06:10 57 L 12 96 04/22/22 06:00 56 L 14 97 04/22/22 06:00 116/75 04/22/22 05:50 56 L 12 97 04/22/22 05:40 55 L 12 96 04/22/22 05:30 59 L 17 96 04/22/22 05:30 123/74 04/22/22 05:20 58 L 14 97 04/22/22 05:10 71 15 95 04/22/22 05:03 60 17 97 04/22/22 05:03 131/86 04/22/22 04:20 57 L 15 04/22/22 04:10 57 L 15 04/22/22 04:00 65 13 04/22/22 03:50 65 16 04/22/22 03:40 63 12 04/22/22 03:30 61 14 04/22/22 03:20 64 14 04/22/22 03:10 68 16 04/22/22 03:04 19 04/22/22 02:50 83 04/22/22 02:40 59 L 16 98 04/22/22 02:30 59 L 14 98 04/22/22 02:20 57 L 10 L 100 04/22/22 02:10 62 19 100 04/22/22 02:00 55 L 16 04/22/22 02:00 102/63 04/22/22 01:50 61 10 L 100 04/22/22 01:40 57 L 15 100 04/22/22 01:39 61 18 100 04/22/22 01:39 155/90 H 04/22/22 01:32 100 04/22/22 01:00 66 15 99 04/22/22 00:50 62 16 99 04/22/22 00:47 64 13 98 04/22/22 01:01 99 04/22/22 00:49 36.9 C 63 16 126/75 99 O2 Del Method 04/22/22 08:08 Room Air 04/22/22 07:45 04/22/22 07:30 04/22/22 07:30 04/22/22 07:15 04/22/22 07:00 04/22/22 07:00 04/22/22 06:45 04/22/22 06:40 04/22/22 06:30 04/22/22 06:30 04/22/22 06:20 04/22/22 06:10 04/22/22 06:00 04/22/22 06:00 04/22/22 05:50 04/22/22 05:40 04/22/22 05:30 04/22/22 05:30 04/22/22 05:20 04/22/22 05:10 04/22/22 05:03 04/22/22 05:03 04/22/22 04:20 04/22/22 04:10 04/22/22 04:00 04/22/22 03:50 04/22/22 03:40 04/22/22 03:30 04/22/22 03:20 04/22/22 03:10 04/22/22 03:04 04/22/22 02:50 04/22/22 02:40 04/22/22 02:30 04/22/22 02:20 04/22/22 02:10 04/22/22 02:00 04/22/22 02:00 04/22/22 01:50 04/22/22 01:40 04/22/22 01:39 04/22/22 01:39 04/22/22 01:32 04/22/22 01:00 04/22/22 00:50 04/22/22 00:47 04/22/22 01:01 Room Air 04/22/22 00:49 Room Air Laboratory Results Abnormal Lab Results 04/22/22 04/22/22 04/22/22 01:33 01:33 01:45 WBC 6.17 RBC 4.56 Hgb 14.0 Hct 40.8 MCV 89.5 MCH 30.7 MCHC 34.3 RDW Std Deviation 39.9 RDW Coeff of Krystal 12.2 Plt Count 220 MPV 9.7 Immature Gran % (Auto) 0.3 Neut % (Auto) 74.3 Lymph % (Auto) 17.7 [place] % (Auto) 6.3 Eos % (Auto) 1.1 Baso % (Auto) 0.3 Neut # (Auto) 4.58 Lymph # (Auto) 1.09 L [place] # (Auto) 0.39 Eos # (Auto) 0.07 Baso # (Auto) 0.02 Immature Gran # (Auto) 0.02 PT INR APTT PTT Ratio Sodium Potassium Chloride Carbon Dioxide Anion Gap BUN Creatinine Est Cr Clr Drug Dosing Est GFR ( Amer) Est GFR (Non-Af Amer) BUN/Creatinine Ratio Glucose Calcium Magnesium Total Bilirubin AST ALT Alkaline Phosphatase Troponin I High Sens Total Protein Albumin Globulin Albumin/Globulin Ratio Triglycerides Cholesterol LDL Cholesterol, Calc VLDL Cholesterol, Calc HDL Cholesterol Cholesterol/HDL Ratio Lipase TSH HCG, Qual Urine Color Dark Yellow Urine Appearance Cloudy A Urine pH 5.5 Ur Specific [place] 1.033 H Urine Protein Trace H Urine Glucose (UA) Negative Urine Ketones 1+ H Urine Blood Negative Urine Nitrite Positive A Urine Bilirubin 1+ H Urine Urobilinogen Positive H Ur Leukocyte Esterase Trace H Urine WBC (Auto) 1-5 Urine RBC (Auto) 10-30 H U Hyaline Cast (Auto) 5-10 H U Epithel Cells (Auto) 20-30 H Urine Bacteria (Auto) Negative Adenovirus (PCR) Not Detected B. pertussis DNA (PCR) Not Detected B.parapertussis DNA PCR Not Detected C. pneumoniae DNA (PCR) Not Detected Coronavirus OC43 (PCR) Not Detected Coronavirus HKU1 (PCR) Not Detected Coronavirus 229E (PCR) Not Detected SARS-CoV-2 (PCR) Not Detected Coronavirus NL63 (PCR) Not Detected Human Metapneumovir PCR Not Detected Influenza Type A (PCR) Not Detected Influenza Type B (PCR) Not Detected M. pneumoniae (PCR) Not Detected Parainfluenza 1 (PCR) Not Detected Parainfluenza 2 (PCR) Not Detected Parainfluenza 3 (PCR) Not Detected Parainfluenza 4 (PCR) Not Detected RSV (PCR) Not Detected Entero/Rhino (PCR) Not Detected 04/22/22 04/22/22 04/22/22 01:45 01:45 01:45 WBC RBC Hgb Hct MCV MCH MCHC RDW Std Deviation RDW Coeff of Krystal Plt Count MPV Immature Gran % (Auto) Neut % (Auto) Lymph % (Auto) [place] % (Auto) Eos % (Auto) Baso % (Auto) Neut # (Auto) Lymph # (Auto) [place] # (Auto) Eos # (Auto) Baso # (Auto) Immature Gran # (Auto) PT 10.6 INR 1.0 APTT 24.7 PTT Ratio 0.9 Sodium 138 Potassium 3.7 Chloride 105 Carbon Dioxide 28 Anion Gap 5 BUN 25 H Creatinine 0.83 Est Cr Clr Drug Dosing 91.5 Est GFR ( Amer) 94.6 Est GFR (Non-Af Amer) 81.6 BUN/Creatinine Ratio 30.1 H Glucose 114 H Calcium 8.8 Magnesium 1.7 Total Bilirubin 0.8 AST 101 H ALT 52 Alkaline Phosphatase 111 H Troponin I High Sens 4.0 Total Protein 6.9 Albumin 4.1 Globulin 2.8 Albumin/Globulin Ratio 1.5 Triglycerides Cholesterol LDL Cholesterol, Calc VLDL Cholesterol, Calc HDL Cholesterol Cholesterol/HDL Ratio Lipase 37 TSH HCG, Qual Negative Urine Color Urine Appearance Urine pH Ur Specific [place] Urine Protein Urine Glucose (UA) Urine Ketones Urine Blood Urine Nitrite Urine Bilirubin Urine Urobilinogen Ur Leukocyte Esterase Urine WBC (Auto) Urine RBC (Auto) U Hyaline Cast (Auto) U Epithel Cells (Auto) Urine Bacteria (Auto) Adenovirus (PCR) B. pertussis DNA (PCR) B.parapertussis DNA PCR C. pneumoniae DNA (PCR) Coronavirus OC43 (PCR) Coronavirus HKU1 (PCR) Coronavirus 229E (PCR) SARS-CoV-2 (PCR) Coronavirus NL63 (PCR) Human Metapneumovir PCR Influenza Type A (PCR) Influenza Type B (PCR) M. pneumoniae (PCR) Parainfluenza 1 (PCR) Parainfluenza 2 (PCR) Parainfluenza 3 (PCR) Parainfluenza 4 (PCR) RSV (PCR) Entero/Rhino (PCR) 04/22/22 04/22/22 04/22/22 01:45 04:22 04:22 WBC RBC Hgb Hct MCV MCH MCHC RDW Std Deviation RDW Coeff of Krystal Plt Count MPV Immature Gran % (Auto) Neut % (Auto) Lymph % (Auto) [place] % (Auto) Eos % (Auto) Baso % (Auto) Neut # (Auto) Lymph # (Auto) [place] # (Auto) Eos # (Auto) Baso # (Auto) Immature Gran # (Auto) PT INR APTT PTT Ratio Sodium Potassium Chloride Carbon Dioxide Anion Gap BUN Creatinine Est Cr Clr Drug Dosing Est GFR ( Amer) Est GFR (Non-Af Amer) BUN/Creatinine Ratio Glucose Calcium Magnesium Total Bilirubin AST ALT Alkaline Phosphatase Troponin I High Sens 3.6 Total Protein Albumin Globulin Albumin/Globulin Ratio Triglycerides 40 Cholesterol 135 LDL Cholesterol, Calc 75 VLDL Cholesterol, Calc 8 HDL Cholesterol 52 Cholesterol/HDL Ratio 2.6 Lipase TSH 2.355 HCG, Qual Urine Color Urine Appearance Urine pH Ur Specific [place] Urine Protein Urine Glucose (UA) Urine Ketones Urine Blood Urine Nitrite Urine Bilirubin Urine Urobilinogen Ur Leukocyte Esterase Urine WBC (Auto) Urine RBC (Auto) U Hyaline Cast (Auto) U Epithel Cells (Auto) Urine Bacteria (Auto) Adenovirus (PCR) B. pertussis DNA (PCR) B.parapertussis DNA PCR C. pneumoniae DNA (PCR) Coronavirus OC43 (PCR) Coronavirus HKU1 (PCR) Coronavirus 229E (PCR) SARS-CoV-2 (PCR) Coronavirus NL63 (PCR) Human Metapneumovir PCR Influenza Type A (PCR) Influenza Type B (PCR) M. pneumoniae (PCR) Parainfluenza 1 (PCR) Parainfluenza 2 (PCR) Parainfluenza 3 (PCR) Parainfluenza 4 (PCR) RSV (PCR) Entero/Rhino (PCR) 04/22/22 08:19 WBC RBC Hgb Hct MCV MCH MCHC RDW Std Deviation RDW Coeff of Krystal Plt Count MPV Immature Gran % (Auto) Neut % (Auto) Lymph % (Auto) [place] % (Auto) Eos % (Auto) Baso % (Auto) Neut # (Auto) Lymph # (Auto) [place] # (Auto) Eos # (Auto) Baso # (Auto) Immature Gran # (Auto) PT INR APTT PTT Ratio Sodium Potassium Chloride Carbon Dioxide Anion Gap BUN Creatinine Est Cr Clr Drug Dosing Est GFR ( Amer) Est GFR (Non-Af Amer) BUN/Creatinine Ratio Glucose Calcium Magnesium Total Bilirubin AST ALT Alkaline Phosphatase Troponin I High Sens 3.6 Total Protein Albumin Globulin Albumin/Globulin Ratio Triglycerides Cholesterol LDL Cholesterol, Calc VLDL Cholesterol, Calc HDL Cholesterol Cholesterol/HDL Ratio Lipase TSH HCG, Qual Urine Color Urine Appearance Urine pH Ur Specific [place] Urine Protein Urine Glucose (UA) Urine Ketones Urine Blood Urine Nitrite Urine Bilirubin Urine Urobilinogen Ur Leukocyte Esterase Urine WBC (Auto) Urine RBC (Auto) U Hyaline Cast (Auto) U Epithel Cells (Auto) Urine Bacteria (Auto) Adenovirus (PCR) B. pertussis DNA (PCR) B.parapertussis DNA PCR C. pneumoniae DNA (PCR) Coronavirus OC43 (PCR) Coronavirus HKU1 (PCR) Coronavirus 229E (PCR) SARS-CoV-2 (PCR) Coronavirus NL63 (PCR) Human Metapneumovir PCR Influenza Type A (PCR) Influenza Type B (PCR) M. pneumoniae (PCR) Parainfluenza 1 (PCR) Parainfluenza 2 (PCR) Parainfluenza 3 (PCR) Parainfluenza 4 (PCR) RSV (PCR) Entero/Rhino (PCR) Diagnostic Findings Chest CTA performed in the emergency room did not reveal any evidence of pulmonary embolus or other acute process. Some dilation of the common bile duct. Absence of the gallbladder. Echocardiogram performed today revealed preserved LV systolic function and normal wall motion. No significant valvular heart disease. ECG Additional Comments: EKG demonstrated sinus bradycardia with some minor nonspecific ST and T-wave changes. PG Care Time/CCT Total # of Minutes Spent Total Time Spent with Patient: Total time spent is greater than 50% in coordination of care (as documented) at patient's floor/unit and/or counseling patient: Coding Level of Care Code 16421 Office/OBS Consult Lvl 4 Diagnoses Chest pain R07.9
--- NOTE | 2022-04-22 10:57 | XCELERA ---
[id number]
[2022-04-22 11:29] LABS: Estimated Average Glucose 111 mg/dl; Hemoglobin A1C 5.5 % (4.5-5.6)
--- NOTE | 2022-04-22 12:25 | Discharge Summary ---
Date of Service April 22, 2022 Admission HPI Per Admitting Provider Tata Lynch is a 52yo female with PMHx significant for obesity (BMI 37.3), HTN, h/o laparoscopic sleeve gastrectomy in 2019, venous insufficiency and h/o breast cancer (s/p partial mastectomy/RTx/chemo in 2014, on Exemastane) who presented to [facility] ED on 04/22 for acute-onset substernal chest and epigastric abdominal pain that started at 20:00 on 04/21 while patient was resting in bed, with associated diaphoresis and nausea. Of note patient has been dealing with GI bug for last several days with associated N/V, diarrhea, and decreased appetite (but adequate fluid intake) which had largely resolved on 04/21, several hours before pain started. The pain was 10/10 severity and was intermittent until she came to the ED, lasting for 10 minutes at a time and resolving before intervention. Patient denies having this pain ever before. Does admit to having several panic attacks in her life, most recently 10 years ago, but reports that this chest tightness/pressure is nothing like those events. Denies symptoms of GERD. Denies RUQ/epigastric pain after eating, and is s/p cholecystectomy - largely having no issues with diet since her gastric sleeve surgery several years ago. Patient denies family history of AK/heart disease. She has a 1 pack year smoking history and quit ~8 years ago. Denies alcohol use or drug use. Denies fever/chills, runny nose, cough, SOB, lower abdominal pain, dysuria or rash. She is proficient in ADLs/iADLs and is able to be moderately physically active. In the ED the patient was afebrile and hemodynamically stable on room air. Labs significant for AST 101 (up from baseline); CBC/CMP/Mg/TSH otherwise WNL. UA cloudy and +nitrite/trace LE/20-30 epithelial cells and negative bacteria. Respiratory BioFire pantoja-negative. CTA chest and CT A/P both without acute pathology. hsTroponin 4.0. EKG NSR without ST/T abnormalities. In ED patient received Morphine 2mg IV x1 and Zofran 4mg IV x1. Principal Diagnosis Chest pain, suspected noncardiac, elevated liver enzymes Discharge Exam General-alert and oriented x3, no fevers, no chills HEENT-head atraumatic and normocephalic, pupils equal and reactive to light, extraocular muscles intact Neck-no lymphadenopathy or thyromegaly, trachea midline Chest-clear to auscultation percussion. No rales wheezing or rhonchi Cardiac-regular rate and rhythm, normal S1 and S2, no murmurs Abdomen-normal bowel sounds, nontender, no hepatosplenomegaly Extremities-no cyanosis, clubbing, or edema Neuro-cranial nerves II through XII intact, motor and sensory function within normal limits, strength symmetrical , no focal deficits Psych-normal affect, normal mood Discharge Data Allergies Allergy/AdvReac Type Severity Reaction Status Date / Time adhesive Allergy Intermediate Itchy rash Verified 04/22/22 01:19 to Tape/Steri Strips/Band Aids Consultations 04/22/22 03:36 ED Decision to Admit Stat 04/22/22 07:58 Consult Cardiology Routine Ordered Studies 04/22/22 00:55 CT abd pelvis IV con only Stat CT angio chest PE protocol Stat 04/22/22 04:14 US liver Urgent Hospital Course (1) Transaminitis: Liver ultrasound reveals prior cholecystectomy with no obstruction. LFTs are minimally elevated. This can be followed as an outpatient (2) Chest pain: Appears to be noncardiac. Troponin levels are normal. Cardiac echo negative for regional wall motion abnormalities. Case discussed with cardiology. She is cleared for discharge home and can follow-up with her PCP for scheduling of outpatient stress testing (3) Essential (primary) hypertension: Controlled with current medication (4) Morbid obesity with BMI of 45.0-49.9, adult: Weight loss recommended (5) Depression: Controlled with current medication Plan Discharge to home today, April 22 Total Time Total Time Spent Total Time Spent (In Minutes): 35 minutes Discharge Plan Discharge Items Patient Disposition: Home - Self-Care Reason For Visit: CHEST PAIN Discharge Diagnosis: Noncardiac chest pain, minimally elevated liver function tests Condition on Discharge: Good Activity: Resume your previous activity Non-emergency contact: Primary Care Provider Call non-emergency contact if: your symptoms worsen Follow-up/Referrals: Dari Bowman DO [Primary Care Provider] - Diet: Heart Healthy Addtl Attending Provider Instructions: Follow-up with your primary care provider for scheduling of outpatient stress te sting Pending Studies at Discharge: No Stand-Alone Forms: My [facility], Smoking Cessation Medications and DC Order Prescriptions: Continued atenolol 25 mg tablet 25 mg PO DAILY Qty: 90 1RF exemestane 25 mg tablet 25 mg PO DAILY Qty: 30 2RF Rx Instructions: must administer after a meal escitalopram oxalate 20 mg tablet 20 mg PO DAILY Qty: 30 5RF multivitamin with iron Tablet 1 tab PO DAILY cholecalciferol (vitamin D3) [Vitamin D3] 25 mcg (1,000 unit) Tablet 0 mcg PO DAILY Rx Instructions: PT UNSURE OF STRENGTH calcium carbonate [Calcium 600] 600 mg calcium (1,500 mg) Tablet 0 mg PO DAILY Rx Instructions: PT UNSURE OF STRENGTH Discharge Orders: Discharge Order (Routine); Ordered 04/22/22 Ordered By: Nas Phelsp Admission Data Admit Date/Time: 04/22/22 04:14 Attending Provider: Nas Phelps Admit Provider: Jered Quinonez Primary Care Provider: Dari Bowman Other Providers: Kendy Turner ; Jose R Ross ; Rivera Fountain ; Madhu Jorgensen ; Nick Pereira ; Toney Melendez ; Juan Barrios Jr ; Juan M Lewis ; Jenise Miller ; Hillary Hannha ; Amauri Castañeda ; Higinio Pope ; Nas Romo ; Shital Ceja ; Ivania George ; Jonatan Swanson ; Johnny Tapia Henry C. ; Nick Cohn V. Coding Level of Care Code D/C DAY MANAGEMENT >30 MINS Diagnoses Transaminitis R74.01 Chest pain R07.9 Essential (primary) hypertension I10 Morbid obesity with BMI of 45.0-49.9, adult E66.01; Z68.42 Depression F32.A
--- NOTE | 2022-04-22 13:34 | XRay Report ---
XR chest 1V portable HISTORY: Atypical chest pain. COMPARISON: None. FINDINGS: The lungs are clear. Cardiac silhouette is normal in size. No pleural effusions. No pneumot horax. IMPRESSION: No acute process. ACT 112: Negative or not required by law. Electronically signed by: Morales Patel M.D. 04/22/2022 1:32 PM
--- NOTE | 2022-04-22 20:50 | Billing Data ---
Date of Service April 22, 2022 Coding Level of Care Code INT OBSERVATION CARE 50M LVL 2
[2022-04-25 12:41] LABS: HBSAG NON-REACTIVE (NON-REACTIVE); Hepatitis A Antibody IgM NON-REACTIVE (NON-REACTIVE); Hepatitis B Core Antibody IgM NON-REACTIVE (NON-REACTIVE)
== END 2022-04-22 13:51 | disposition home or self-care (01) ==
LOC: ED 00:38 → EDINP 00:38 → SUATTDRO 04:14 → EDINP 06:42